=== PATIENT | female | born 1950 | race African-American/Black ===

== ENCOUNTER 2017-02-09 07:04 | Emergency (ER) | payer MEDICARE ==
[2017-02-09 07:14] VITALS: BP 151/80
--- NOTE | 2017-02-09 07:37 | UC ---
Throat Pain/Nasal Braulio HPI - HPI Summary HPI Summary: 66 YEAR OLD FEMALE PRESENTS WITH SORE THROAT. - History of Current Complaint Chief Complaint: UCGeneralIllness Stated Complaint: SORE THROAT Time Seen by Provider: 02/09/17 07:13 - Allergies/Home Medications Allergies/Adverse Reactions: Allergies Allergy/AdvReac Type Severity Reaction Status Date / Time Tramadol [From Ultracet] Allergy Severe Dizziness Verified 02/09/17 07:14 Quinapril [From Accupril] Allergy Unknown Verified 02/09/17 07:14 Reaction Details PMH/Surg Hx/FS Hx/Imm Hx Other History Of: Negative For: Anticoagulant Therapy - Surgical History Surgical History: Yes Surgery Procedure, Year, and Place: LUMPECTOMY. BOWEL RECECTION & POLYP REMOVAL 2009. BL TUBAL LIGATION, LEFT BREAST MASTECTOMY - Family History Known Family History: Positive: Hypertension, Diabetes, Respiratory Disease - Social History Alcohol Use: None Substance Use Type: None Smoking Status (MU): Never Smoked Tobacco - Immunization History Most Recent Influenza Vaccination: 2011 Most Recent Tetanus Shot: UNSURE Most Recent Pneumonia Vaccination: HAD Review of Systems Constitutional: Negative Skin: Negative Eyes: Negative ENT: Sore Throat, Nasal Discharge Respiratory: Negative Cardiovascular: Negative Gastrointestinal: Negative Genitourinary: Negative Motor: Negative Neurovascular: Negative Musculoskeletal: Negative Neurological: Negative Psychological: Negative All Other Systems Reviewed And Are Negative: Yes Physical Exam Triage Information Reviewed: Yes Vital Signs: Initial Vital Signs Temp 36.3 C 02/09/17 07:09 Pulse 75 02/09/17 07:09 Resp 18 02/09/17 07:09 BP 151/80 02/09/17 07:09 Pulse Ox 100 02/09/17 07:09 Eye Exam: Normal ENT: Positive: Pharyngeal erythema, Nasal congestion, Tonsillar swelling Dental Exam: Normal Neck exam: Normal Neck: Positive: 1 Respiratory Exam: Normal Cardiovascular Exam: Normal Abdominal Exam: Normal Musculoskeletal Exam: Normal Neurological Exam: Normal Psychological Exam: Normal Skin Exam: Normal Throat Pain/Nasal Course/Dx - Differential Dx/Diagnosis Provider Diagnoses: PHARYNGITIS. SORE THROAT Discharge - Discharge Plan Condition: Stable Disposition: HOME Prescriptions: Amoxicillin CAP* [Amoxicillin 500 MG CAP*] 500 mg PO TID #30 cap LoraTADine TAB(NF) [Claritin 10 MG TAB(NF)] 10 mg PO DAILY #30 tab Magic M W2 Mark/Maal/Nyst/Lido* 15 ml SWISH SPIT QID #120 ml Patient Education Materials: Pharyngitis (ED) Referrals: Yahir Molina MD [Primary Care Provider] - If Needed
== END 2017-02-09 07:57 | disposition home or self-care (01) ==
LOC: UCEAST 07:04
DX: J02.9 Acute pharyngitis, unspecified (principal); Z88.5 Allergy status to narcotic agent
CPT/HCPCS: 87651; 99212; G0463

== ENCOUNTER 2018-03-10 10:51 | Observation (INO) | payer BC, MEDICARE ==
[2018-03-10] MEDS ORDERED: Aspirin 81 mg CHEW TAB* 81 MG TAB.CHEW PO ONE (11:03)
--- NOTE | 2018-03-10 11:03 | ED ---
HPI Chest Pain - HPI Summary HPI Summary: This is olimpia Guzman documenting for attending Vish Donald MD. This patient is a 67 year old F BIBA to ED with a chief complaint of CP since 1 month ago. The CC is described as intermittent, pressure and tightness with episodes lasting 10-15 minutes. The patient rates the pain 7/10 in severity during the onset of pain but has no pain currently. Symptoms aggravated by exertion. Symptoms alleviated by lying down. Patient reports dizziness. Patient denies N/V. Patient has had a stress test in 2011 which was negative. Patient does not have a crime lab technician. PMHx of DM, HTN, and HLD. Denies PHx of heart attack. Father had heart attack at age 64 and had DM. - History of Current Complaint Time Seen by Provider: 03/10/18 10:55 Hx Obtained From: Patient Onset/Duration: Started Weeks Ago - since 1 month ago, Resolved - currently Timing: Intermittent, Lasting Minutes - 10-15 minutes Initial Severity: Moderate - 7/10 Current Severity: None Pain Intensity: 7 Pain Scale Used: 0-10 Numeric Character: Pressure/Squeezing, Tightness Aggravating Factor(s): Exertion Alleviating Factor(s): Position - lying down Associated Signs and Symptoms: Positive: Other: - Patient reports dizziness. Patient denies N/V. - Allergy/Home Medications Allergies/Adverse Reactions: Allergies Allergy/AdvReac Type Severity Reaction Status Date / Time quinapril Allergy Dizziness Verified 03/10/18 10:56 tramadol [From Ultracet] Allergy See Comment Verified 03/10/18 10:56 Home Medications: Home Medications Glimepiride (NF) 1 mg PO QAM 03/10/18 [History Confirmed 03/10/18] Naproxen TAB* [Naprosyn 250 mg TAB*] 500 mg PO BID WITH MEALS PRN 03/10/18 [ History Confirmed 03/10/18] Olmesartan Medoxomil [Benicar] 20 mg PO DAILY 03/10/18 [History Confirmed ] Pravastatin (NF) [Pravachol (NF)] 20 mg PO DAILY 03/10/18 [History Confirmed ] dilTIAZem HCl [Cartia Xt] 240 mg PO DAILY 03/10/18 [History Confirmed 03/10/18] PMH/Surg Hx/FS Hx/Imm Hx Endocrine/Hematology History: Reports: Hx Diabetes - TYPE 2 Denies: Hx Anticoagulant Therapy Cardiovascular History: Reports: Hx Angina, Hx Hypercholesterolemia, Hx Hypertension - ON CARDIZEM & BENICAR, Other Cardiovascular Problems/Disorders - RBBB 07/23/13 EKG Respiratory History: Reports: Hx Pneumonia Denies: Hx Asthma, Hx Chronic Obstructive Pulmonary Disease (COPD) GI History: Reports: Other GI Disorders - RECTAL POLYP & BOWL RESECTION 2009 Musculoskeletal History: Reports: Hx Bursitis - & TENDINITIS, Other Musculoskeletal History - HX FOOT FX Sensory History: Reports: Hx Contacts or Glasses Opthamlomology History: Reports: Hx Contacts or Glasses Neurological History: Reports: Hx Dementia - oral meds - Cancer History Cancer Type, Location and Year: LEFT BREAST CA Hx Chemotherapy: Yes - Surgical History Surgery Procedure, Year, and Place: LUMPECTOMY. BOWEL RECECTION & POLYP REMOVAL 2009. BL TUBAL LIGATION, LEFT BREAST MASTECTOMY Hx Anesthesia Reactions: No Infectious Disease History: Reports: Hx Shingles Denies: Traveled Outside the [place] in Last 30 Days - Family History Known Family History: Positive: Hypertension, Diabetes, Respiratory Disease Family History: Father had heart attack at age 64 - Social History Alcohol Use: None Substance Use Type: Reports: None Smoking Status (MU): Never Smoked Tobacco Review of Systems Positive: Chest Pain Negative: Vomiting, Nausea Neurological: Other - dizziness All Other Systems Reviewed And Are Negative: Yes Physical Exam - Summary Physical Exam Summary: VITAL SIGNS: Reviewed. GENERAL: Patient is a well-developed and nourished FEMALE who is lying comfortable in the stretcher. Patient is not in any acute respiratory distress. HEAD AND FACE: No signs of trauma. No ecchymosis, hematomas or skull depressions. No sinus tenderness. EYES: PERRLA, EOMI x 2, No injected conjunctiva, no nystagmus. EARS: Hearing grossly intact. Ear canals and tympanic membranes are within normal limits. MOUTH: Oropharynx within normal limits. NECK: Supple, trachea is midline, no adenopathy, no JVD, no carotid bruit, no c- spine tenderness, neck with full ROM. CHEST: Symmetric, no tenderness at palpation LUNGS: Clear to auscultation bilaterally. No wheezing or crackles. CVS: Regular rate and rhythm, S1 and S2 present, no murmurs or gallops appreciated. ABDOMEN: Soft, non-tender. No signs of distention. No rebound no guarding, and no masses palpated. Bowel sounds are normal. EXTREMITIES: FROM in all major joints, no edema, no cyanosis or clubbing. NEURO: Alert and oriented x 3. No acute neurological deficits. Speech is normal and follows commands. SKIN: Dry and warm Triage Information Reviewed: Yes Vital Signs On Initial Exam: Initial Vitals Temp Pulse Resp BP Pulse Ox 97.4 F 60 16 161/72 97 03/10/18 10:53 03/10/18 10:53 03/10/18 10:53 03/10/18 10:53 03/10/18 10:53 Vital Signs Reviewed: Yes Diagnostics - Laboratory Result Diagrams: 03/10/18 11:09 03/10/18 11:09 Lab Statement: Any lab studies that have been ordered have been reviewed, and results considered in the medical decision making process. - Radiology CXR Radiology Interpretation Completed By: Radiologist - NO ACTIVE CARDIOPULMONARY DISEASE. ED physician has reviewed this radiology report. - EKG 1109 Cardiac Rate: Bradycardia - 59 BPM EKG Rhythm: Sinus Bradycardia EKG Interpretation: No ST elevations, Q wave in aVF, V2, and V3 Re-Evaluation - Re-Evaluation First Eval Re-Evaluation Time: 13:22 Comment: Discussed results with the patient and plan for admission. Patient understands and agrees. Chest Pain Course/Dx - Course Assessment/Plan: This patient is a 67 year old F BIBA to ED with a chief complaint of CP since 1 month ago. The CC is described as intermittent, pressure and tightness with episodes lasting 10-15 minutes. The patient rates the pain 7/10 in severity during the onset of pain but has no pain currently. Symptoms aggravated by exertion. Symptoms alleviated by lying down. Patient reports dizziness. Patient denies N/V. Patient has had a stress test in 2011 which was negative. Patient does not have a crime lab technician. PMHx of DM, HTN, and HLD. Denies PHx of heart attack. Father had heart attack at age 64 and had DM. Blood test results without a significant abnormality except for lactic acid is 2.1, magnesium 1.7, AST is 50, alkaline phosphatase is 113. Chest x-ray impression: No acute pathology. EKG shows a normal sinus rhythm with no ST elevation. In the ED course the patient was given an aspirin pain he was given magnesium for the hypomagnesemia. Since the patient has multiple comorbidities for acute coronary syndrome I discussed the case with Dr. Torres from the hospitalist services who accepted the patient for admission. The patient agrees with admission. Patient is hemodynamically stable alert and oriented 3. - Chest Pain Differential Diagnosis/HQI/PQRI: Acute SC, ACS, Angina, CHF, Chest Wall, GI Disease, Lower Respiratory Infection - Diagnoses Provider Diagnoses: Chest pain, rule out acute myocardial infarction - Provider Notifications Discussed Care Of Patient With: Mari Torres Time Discussed With Above Provider: 03:17 Instructed by Provider To: Other - Consulted Dr. Torres at 0317 who accepts the patient for admission. Discharge - Sign-Out/Discharge Documenting (check all that apply): Patient Departure - Discharge Plan Condition: Stable Disposition: ADMITTED TO [facility] Referrals: Yahir Molina MD [Primary Care Provider] -
[2018-03-10] MEDS ORDERED: Magnesium Oxide TAB* 400 MG PO ONE (12:13)
--- NOTE | 2018-03-10 12:31 | RAD ---
HISTORY: CP, chest pain COMPARISONS: July 23, 2013 VIEWS: 1: frontal portable view of the chest at 11:35 AM FINDINGS: LINES AND TUBES: None. CARDIOMEDIASTINAL SILHOUETTE: The aorta is tortuous. The cardiomediastinal silhouette is otherwise normal for portable technique. PLEURA: The costophrenic angles are sharp. No pleural abnormalities are noted. LUNG PARENCHYMA: The lungs are clear. ABDOMEN: The upper abdomen is clear. There is no subphrenic gas. BONES AND SOFT TISSUES: No bone or soft tissue abnormalities are noted. IMPRESSION: NO ACTIVE CARDIOPULMONARY DISEASE.
[2018-03-10 12:37] LABS: ABS Basophils 0 10^3/ul (0-0.2); ABS Eosinophils 0.1 10^3/ul (0-0.6); ABS Lymphocytes 1.9 10^3/ul (1.0-4.8); ABS Monocytes 0.5 10^3/ul (0-0.8); ABS Neutrophils 1.4 10^3/ul (1.5-7.7); ABS Nucleated RBC 0 10^3/ul; Eosinophil % 1.4 % (0-6); Hematocrit 38 % (35-47); Hemoglobin 12.4 g/dl (12.0-16.0); Lymphocyte % 48.6 % (25-47); Mean Corpuscular HGB Conc 32 g/dl (31-36); Mean Corpuscular Hemoglobin 24 pg (27-31); Mean Corpuscular Volume 75 fL (80-97); Mean Platelet Volume 9.1 um3 (7.4-10.4); Nucleated Red Blood Cells % 0.2; Platelet Count 242 10^3/ul (150-450); Red Cell Distribution Width 14 % (10.5-15); White Blood Count 3.8 10^3/ul (3.5-10.8)
[2018-03-10] MEDS ORDERED: Dextrose 50% Syringe 50 ML* 25 GM/50 ML SYRINGE IV PUSH PRN (14:10)
[2018-03-10] MEDS ORDERED: Magnesium Sulfate 1 GM IV* 1 GM/100 ML BAG IV ONE (14:13)
[2018-03-10] MEDS ORDERED: NS 0.9% 1000 ML* 1,000 ML IV SCH (14:15)
--- NOTE | 2018-03-10 16:26 | HP ---
CC: Dr. Ruelas * HISTORY AND PHYSICAL: DATE OF ADMISSION: 03/10/18 PROVIDER: Carri Navarro NP ATTENDING PHYSICIAN: Dr. Torres * (report dictated by Carri Navarro NP). PRIMARY CARE PROVIDER: Dr. Ruelas. CHIEF COMPLAINT: Chest pain. HISTORY OF PRESENT ILLNESS: Ms. Delgado is a 67-year-old female with a past medical history of eqb-ysfvnrf-qerulsxti type 2 diabetes; hypertension; hyperlipidemia; history of breast cancer, status post lumpectomy, radiation and chemo, who presents to the emergency department today with complaint of intermittent chest pain with exertion on and off x1 month. The patient reports starting approximately a month ago, she noted she had mid sternal chest pain that did not radiate, with exertion only. She reports these episodes have been intermittent several times a week only during exertion. She reports that they last 10 to 15 minutes and she has to rest and they subside. She denies any radiation. No accompanied diaphoresis or shortness of breath. She underwent a cardiac nuclear stress test in 2012, which placed her at low risk. She has no history of coronary artery disease. She denies any recent upper respiratory illness, cough, fever, chills, abdominal pain, or symptoms of reflux. Currently, she reports that she did experience some mid sternal chest pain this morning. She went and followed up at her primary care's office, who sent her to the emergency department for further evaluation. At her primary care provider's office, she had an EKG as well as EKG was performed in the emergency department, which showed no acute changes. Her initial troponin is 0.00. She is noted to have an elevated lactic acid of 2.1. PAST MEDICAL HISTORY: 1. Ukr-otnwmrx-iucihsygj type 2 diabetes. 2. Hypertension. 3. Hyperlipidemia. 4. Fatty liver. 5. History of cardiomyopathy. 6. Microcytic anemia. 7. History of breast cancer, in 2006, status post lumpectomy, radiation and chemo. 8. History of breast reduction. 9. Bowel resection in 2013 for benign polyp. MEDICATIONS: Home medications: 1. Metformin 1000 mg p.o. b.i.d. 2. Advil/ibuprofen 400 mg p.o. q.6 hours p.r.n. (per the patient, she rarely takes this). 3. Pravastatin 20 mg p.o. daily. 4. Benicar 20 mg p.o. daily. 5. Naproxen 500 mg p.o. b.i.d. with meals p.r.n. (per the patient, she rarely takes this). 6. Diltiazem 240 mg p.o. daily. 7. Glimepiride 1 mg p.o. q.a.m. ALLERGIES: QUINAPRIL and TRAMADOL. FAMILY HISTORY: The patient reports that her mother had lung cancer and had hypertension. Her father at age 69 from an [place], as well as he had type 1 diabetes. She had a brother, who of alcoholic cirrhosis and a sister, who at age 52; she reports complications from hypertension. SOCIAL HISTORY: The patient denies history of tobacco abuse. Denies alcohol or recreational drug use. She currently lives in an apartment attached to her son' s house. She lists her daughter, Marii Dawn, as the healthcare proxy. Her number is [phone]. 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 REVIEW OF SYSTEMS: A 14-point review of systems was performed. All the pertinent positives and negatives are mentioned in the history of present illness. Otherwise, negative. PHYSICAL EXAMINATION GENERAL APPEARANCE: A well-developed, 67-year-old female, alert and oriented x3 , sitting up in the emergency department stretcher, in no acute distress. VITAL SIGNS: Temperature 97.4, heart rate 63, respirations 18, O2 sat 98% on room air, blood pressure 147/62. NECK: Supple. LUNGS: Clear to auscultation bilaterally. Good aeration throughout. CARDIAC: S1, S2. Regular rate and rhythm. No murmur, rub, or gallop appreciated. No reproducible chest pain. ABDOMEN: Obese, soft, nontender, nondistended. Normal bowel sounds throughout. No epigastric tenderness noted. EXTREMITIES: No clubbing, cyanosis, or edema noted. 2+ DP pulses bilaterally. Strength is 5/5 throughout. NEURO: Alert and oriented x3. No focal deficits. Cranial nerves II through XII are grossly intact. PSYCH: Appropriate. SKIN: Warm, dry, intact. No rashes, lesions, wounds noted. DIAGNOSTIC STUDIES/LAB DATA: Sodium 139, potassium 4.1, chloride 104, carbon dioxide 27, anion gap 8, BUN 11, creatinine 0.63, glucose 103, lactic acid 2.1, calcium 9.6, magnesium 1.7. Total bilirubin 0.70, AST 50, ALT 31, alkaline phosphatase 113. Total creatine kinase 189, CK-MB 1.9. Troponin 0.00. BNP 31. Total protein 7.7, albumin 4.0. TSH 2.21. WBC is 3.8, RBC 5.10, Hgb is 12.4, Hct 38, MCV 75, MCH 24, MCHC 32, RDW 14, platelet count 242. Chest x-ray, impression: No active cardiopulmonary disease. EKG: Sinus bradycardia with a rate of 59. In comparison to prior EKG from 2013 , there are no acute ST changes noted. ASSESSMENT AND PLAN: Ms. Delgado is a 67-year-old female with a past medical history of obesity, xeh-dowddyo-cztkptiwu type 2 diabetes, hypertension, hyperlipidemia, fatty liver, history of cardiomyopathy, microcytic anemia, history of breast cancer, who presented to the emergency department today with report of chest pain with exertion x1 month. 1. Chest pain. The patient will be admitted on observation to telemetry for monitoring for acute coronary syndrome. It is possible this is angina. Currently, the patient is chest pain-free. Her initial troponin is 0.00. We will continue to trend troponins q.3 hours and we will obtain EKG with any further chest pain. She received a full-strength aspirin in the emergency department. Plan for n.p.o. after midnight with cardiac nuclear exercise stress test in the morning. The patient's ALEXIS score is 3. 2. Elevated lactic acid. The patient's lactic acid is mildly elevated at 2.1. We will give the patient 1 L of normal saline and recheck her lactate this evening. She is on metformin. This should be considered to be held on discharge as most likely this is causing her elevation in lactic acid. 3. Hypomagnesemia. The patient's magnesium is 1.7. We will give the patient replacement. Recheck in the morning. 4. Transaminitis. The patient's AST is mildly elevated at 50 with a normal ALT. Most likely, this is secondary to her fatty liver. The patient is followed by her PCP. 5. Elevated alk phos, unclear etiology. We will recheck in the morning. Her previous alk phos has been normal. 6. Microcytic anemia. H and H are stable and at baseline. 7. Hypertension, stable. We will continue home medication of diltiazem and continue to monitor. 8. Lmg-yinpsma-sezhqgvqf type 2 diabetes. Plan to hold metformin and glimepiride oral home medications and start fingerstick blood glucose a.c. and h.s. with lispro sliding scale. 9. DVT prophylaxis. Heparin subcu. 10. Code status. Full code. 11. Hospital status. Observation. TIME SPENT: Approximately 60 minutes was spent on this admission. CARRI NAVARRO, GUEST HISTORY CLERK [id number]/CPS #: [id number] ENEIDA
[2018-03-10] MEDS: Insulin LISPRO* 1 UNITS UNIT SUBCUT SCH ×2 (16:54→21:52)
[2018-03-10] MEDS: Heparin VIAL(*) 5000 UNITS/ML VIAL (FIVE THOUSAND) SUBCUT SCH (21:52)
[2018-03-11 05:25] LABS: Hematocrit 38 % (35-47); Hemoglobin 12.4 g/dl (12.0-16.0); Mean Corpuscular HGB Conc 32 g/dl (31-36); Mean Corpuscular Hemoglobin 24 pg (27-31); Mean Corpuscular Volume 73 fL (80-97); Mean Platelet Volume 8.7 um3 (7.4-10.4); Platelet Count 222 10^3/ul (150-450); Red Blood Count 5.23 10^6/ul (4.00-5.40); Red Cell Distribution Width 14 % (10.5-15); White Blood Count 3.6 10^3/ul (3.5-10.8)
[2018-03-11 05:38] LABS: EGFR Non-African American 107.7 (>60)
[2018-03-11 05:47] LABS: ABS Basophils 0.1 10^3/ul (0-0.2); ABS Eosinophils 0.1 10^3/ul (0-0.6); ABS Lymphocytes 1.8 10^3/ul (1.0-4.8); ABS Monocytes 0.6 10^3/ul (0-0.8); ABS Neutrophils 1.1 10^3/ul (1.5-7.7); ABS Nucleated RBC 0 10^3/ul; Eosinophil % 2.2 % (0-6); Lymphocyte % 49.7 % (25-47); Nucleated Red Blood Cells % 0.1
[2018-03-11] MEDS: Heparin VIAL(*) 5000 UNITS/ML VIAL (FIVE THOUSAND) SUBCUT SCH ×2 (06:08→15:35)
[2018-03-11] MEDS ORDERED: Magnesium Sulfate 2 GM IV* 2 GM/50 ML BAG IVPB ONE (08:30)
[2018-03-11] MEDS ORDERED: Diltiazem CD CAP* 240 MG PO SCH (09:00)
[2018-03-11] MEDS: Insulin LISPRO* 1 UNITS UNIT SUBCUT SCH ×2 (09:28→11:55)
--- NOTE | 2018-03-11 12:08 | RAD ---
HISTORY: chest pain with exertion COMPARISONS: July 24, 2013 TECHNIQUE: A 1 day stress/rest myocardial perfusion study was performed, with exercise stress. The exercise portion was performed using the Santos protocol, for a total METs of 7. The stress portion was monitored by Dr. Adams. Gated SPECT imaging was performed, with CT-based attenuation correction DOSE: Stress: Technetium 99m tetrofosmin, 25.8 millicuries, injected at 11:00 AM on March 11, 2018 Rest: Technetium 99m tetrofosmin, 10.88 millicuries, injected at 6:30 AM on March 11, 2018 Pharmacologic agent: None FINDINGS: CARDIAC MONITORING: Peak heart rate of 1 52 bpm, 99% of predicted EF: 56% TID: 1 MOTION: Normal motion, with normal wall thickening. PERFUSION: There is a small reversible defect near the apex that is only seen on the attenuation corrected images. OTHER: None IMPRESSION: QUESTIONABLE SMALL REVERSIBLE PERFUSION DEFECT OF THE APEX. ASSESSMENT: LOW RISK. Based on imaging criteria from ACC/AHA 2002. Guideline Update for the Management of Patient's with Chronic Stable Angina, table 23. Noninvasive Risk Stratification.
--- NOTE | 2018-03-11 15:47 | PN ---
Subjective Date of Service: 03/11/18 Interval History: patient reports she has not had any CP since arrival to ER. She offers no complaints and would like to go home Objective Active Medications: Dextrose (D50w Syringe 50 Ml*) 12.5 gm IV PUSH .FOR FS < 60 - SS PRN PRN Reason: FS < 60 Diltiazem HCl (Cardizem Cd Cap*) 240 mg PO DAILY [facility] Last Admin: 03/11/18 09:35 Dose: 240 mg Heparin Sodium (Porcine) (Heparin Vial(*)) 5,000 units SUBCUT Q8HR MATTHEW Last Admin: 03/11/18 15:35 Dose: Not Given Insulin Human Lispro (Humalog*) 0 units SUBCUT ACHS [facility]; Protocol Last Admin: 03/11/18 11:55 Dose: Not Given Valsartan (Diovan Tab*) 160 mg PO DAILY [facility] Oxygen Devices in Use Now: None Appearance: 67 yo female sitting up in bed visiting with family in NAD. A+O x3 Eyes: No Scleral Icterus, PERRLA Ears/Nose/Mouth/Throat: NL Teeth, Lips, Gums, Mucous Membranes Moist Neck: NL Appearance and Movements; NL JVP Respiratory: Symmetrical Chest Expansion and Respiratory Effort, Clear to Auscultation Cardiovascular: NL Sounds; No Murmurs; No JVD, RRR, No Edema Abdominal: NL Sounds; No Tenderness; No Distention Extremities: No Edema, No Clubbing, Cyanosis Skin: No Rash or Ulcers, No Nodules or Sclerosis Neurological: Alert and Oriented x 3, NL Sensation, NL Muscle Strength and Tone Lines/Tubes/Other Access: Clean, Dry and Intact Peripheral IV Nutrition: Taking PO's Result Diagrams: 03/11/18 04:58 03/11/18 04:58 Assess/Plan/Problems-Billing Assessment: 67 yo female with PMH of obesity, DMII, HTN who presented yesterday with C/O CP x 1 month worse with exertion - Patient Problems (1) Chest pain Comment: Resolved. Nuclear stress showing low risk - cardiology looked at the imaging and said it is a normal barbara, exercise stress test placed at Intramediate risk d/ u exercise capacity was poor and blood pressure elevated to 220 with exercise - clinical nutrition manager suspects CP is secondary to uncontrolled HTN. No CP during exam. - Plan to add HCTZ on DC. Cardiology recommended outpt echo which patient will go through her [facility] PCP. As well, recommended a BB but pts HR is low 60s. (2) HTN (hypertension) Comment: - patient thought to have uncontrolled HTN - plan to initiate HCTZ on discharge , recommended starting blood pressure monitoring at home with keeping a log for PCP. (3) Diabetes 1.5, managed as type 2 Comment: sugars controlled. Continue home emdications on discharge (4) DVT prophylaxis Comment: HSQ Status and Disposition: OBV. Plan for DC to home today. Family in room and agree with the POC.
[2018-03-11] MEDS ORDERED: Hydrochlorothiazide TAB* 25 MG PO ONE (15:51)
[2018-03-11 15:55] VITALS: BP 144/74
[2018-03-12] MEDS ORDERED: Valsartan TAB* 160 MG PO SCH (09:00)
--- NOTE | 2018-03-13 23:43 | DS ---
CC: Dr. Ruelas.* DISCHARGE SUMMARY: DATE OF ADMISSION: 03/10/18 DATE OF DISCHARGE: 03/11/18 HOSPITAL STATUS: Observation. PROVIDER: Carri Navarro NP ATTENDING PHYSICIAN: Dr. Torres * (report dictated by Carri Navarro NP). PRIMARY CARE PROVIDER: Dr. Ruelas. PRIMARY DIAGNOSES: Chest pain, unclear etiology, thought to be possibly secondary to anxiety and potentially uncontrolled hypertension with exercise and exertion. SECONDARY DIAGNOSES: 1. Non-insulin dependent type 2 diabetes. 2. Hypertension. 3. Hyperlipidemia. 4. Fatty liver. 5. History of cardiomyopathy. 6. History of microcytic anemia. 7. History of breast cancer in 2017, status post lumpectomy, radiation and chemo. 8. History of breast reduction. 9. Bowel resection in 2013 for benign polyp. HISTORY OF PRESENT ILLNESS AND HOSPITAL COURSE: Ms. Delgado is a very pleasant 67-year-old female with a past medical history as stated above who presented to the emergency department with complaints of intermittent chest pain with exertion on and off for 1 month. The patient reports that she has had these episodes intermittently several times a week during exertion and denies these episodes at rest. She has no accompanying diaphoresis or shortness of breath. She also reports some anxiety at her baseline and is not sure if she has felt a correlation between anxiety and the chest discomfort. She reports it to be midsternal with no radiation. She was seen and evaluated in her primary care's office and was sent to the emergency room for further evaluation. In the emergency department, she was found to have normal EKG and a flat troponin. She was admitted to the hospitalist service and underwent a nuclear exercise cardiac stress test, which placed her at low risk. The impression shows a questionable small reversible perfusion defect at the apex, I did discuss this with the finance admin who reports that this is actually a fixed defect. Hair Spinning Machine Operator who performed the exercise portion of the stress test reported her to be intermediate risk and this was due to that when she got to exercise capacity, her blood pressure was approximately 220. It was thought possibly and most likely that this exertional chest pain is secondary to uncontrolled hypertension. Our recommendation was start the patient on a beta tiffany and a diuretic; however, due to the patient's heart rate being in the 50s and 60s at her baseline, a beta-tiffany would not be a good choice for the patient and she was then started on hydrochlorothiazide. I suggested that the patient buy a blood pressure cuff and monitor her blood pressures a couple of times a day at home and enter the log for her primary care provider. As well, if she develops chest discomfort, to take her blood pressure to see if she is actually hypertensive with these symptoms. The patient is to follow up with her primary care provider within 4 to 7 days. If she has other concerning worsening symptoms, I instructed the patient to return emergency department for further evaluation. She was noted to have a magnesium of 1.8 and she got replacement. Otherwise, her labs are unremarkable. Hemoglobin A1c was performed, which was noted to be 7.1. Today, on the day of discharge the patient has not had any further episodes of chest pain and did not have any chest pain during her exercise stress test. She reports that she feels is at her baseline and would like to go home. She has been ambulating around the unit and is stable. She has remained hemodynamically stable throughout hospitalization. Her family has been at the bedside and agrees to plan of care. I discussed with the patient the benefits of weight loss and a healthy diabetic diet and possible referral to a registered massage therapist and could follow up with the [facility] if she wished to. DISCHARGE MEDICATIONS: 1. Metformin 1000 mg p.o. b.i.d. 2. Advil 400 mg p.o. q.6 hours p.r.n. (per the patient, she does not take this often). 3. Pravastatin 20 mg p.o. daily. 4. Olmesartan 20 mg p.o. daily. 5. Naproxen 500 mg p.o. b.i.d. with meals p.r.n. (per the patient, she does not take this often). 6. Diltiazem 240 mg p.o. daily. 7. Glimepiride 1 mg p.o. q.a.m. 8. Hydrochlorothiazide 25 mg p.o. daily (new medication). DISCHARGE PLAN: 1. The patient is stable for discharge to home. 2. She is to follow up with her primary care provider within 4 to 7 days. Return to the emergency department with any further worsening symptoms. I discussed with the patient to keep a blood pressure record to show to her primary care provider. TIME SPENT: Approximately 60 minutes were spent on this discharge. CARRI NAVARRO, RN INTERNATIONAL [id number]/[facility] #: [id number] [facility] HOSPITALAlanis
== END 2018-03-11 17:01 | disposition home or self-care (01) ==
LOC: ED 10:51 → MEDTELE 14:06
PROVIDERS: ADMIT Hospitalist; ATTEND Hospitalist
DX: R07.9 Chest pain, unspecified (principal); E11.9 Type 2 diabetes mellitus without complications; I10 Essential (primary) hypertension; E78.5 Hyperlipidemia, unspecified; Z79.899 Other long term (current) drug therapy
CPT/HCPCS: 36415; 71045; 78452; 80048; 80053; 82550; 82553; 82728; 82746; 83036; 83540; 83550; 83605; 83735; 83880; 84075; 84443; 84484; 85025; 93005; 93017; 99284; A9270-GY; A9502; G0378; J1644; J3475

== ENCOUNTER → 2018-05-28 11:12 | Emergency (ER) | payer MEDICARE, OTHER ==
--- NOTE | 2018-05-28 13:29 | RAD ---
HISTORY: chest pain COMPARISONS: February VIEWS: 1: frontal AP view of the chest at 1:18 PM FINDINGS: LINES AND TUBES: None. CARDIOMEDIASTINAL SILHOUETTE: The aorta is tortuous. The cardiomediastinal silhouette is otherwise normal for portable technique. PLEURA: The costophrenic angles are sharp. No pleural abnormalities are noted. LUNG PARENCHYMA: The lungs are clear. ABDOMEN: The upper abdomen is clear. There is no subphrenic gas. BONES AND SOFT TISSUES: No bone or soft tissue abnormalities are noted. IMPRESSION: NO ACTIVE CARDIOPULMONARY DISEASE.
--- NOTE | 2018-05-28 13:44 | ED ---
HPI Chest Pain - HPI Summary HPI Summary: This patient is a 67 year old F presenting to [facility] with a chief complaint of intermittent, slowly worsening, tight, pressure central CP for the past 2-3 months, with episodes lasting for around 15 minutes. Pt endorses fatigue, and denies current pain. She notes a recent EKG was normal, and that she has a scheduled cardiac catheterization in a week or so. She says that the sx are worse with exertion, but still exist at rest. Today, her sx were aggravated by water aerobics (3x a week for 5-6 years), with more difficulty competing the work-out recently. She denies smoking, and endorses PMHx HTN, DM, FHx HTN CAD, DM. 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 Cruz at [place]. - History of Current Complaint Chief Complaint: EDChestPainROMI Time Seen by Provider: 05/28/18 12:53 Hx Obtained From: Patient Onset/Duration: Started Weeks Ago, Still Present Timing: Intermittent, Lasting Minutes - 15 Initial Severity: Moderate - 8/10 at worst Current Severity: None Pain Intensity: 0 Pain Scale Used: 0-10 Numeric Chest Pain Location: Mid Sternal Chest Pain Radiates: No Character: Exertion, Pressure/Squeezing, Tightness Aggravating Factor(s): Exertion Alleviating Factor(s): Nothing Associated Signs and Symptoms: Positive: Chest Pain, Other: - fatigue. Negative : Fever, Diaphoresis, Nausea - Additional Pertinent History Primary Care Physician: [id number] - Allergy/Home Medications Allergies/Adverse Reactions: Allergies Allergy/AdvReac Type Severity Reaction Status Date / Time quinapril Allergy Dizziness Verified 03/10/18 10:56 tramadol [From Ultracet] Allergy See Comment Verified 03/10/18 10:56 PMH/Surg Hx/FS Hx/Imm Hx Endocrine/Hematology History: Reports: Hx Diabetes - TYPE 2 Denies: Hx Anticoagulant Therapy Cardiovascular History: Reports: Hx Angina, Hx Hypercholesterolemia, Hx Hypertension - ON CARDIZEM & BENICAR, Other Cardiovascular Problems/Disorders - RBBB 07/23/13 EKG Respiratory History: Reports: Hx Pneumonia Denies: Hx Asthma, Hx Chronic Obstructive Pulmonary Disease (COPD) GI History: Reports: Other GI Disorders - RECTAL POLYP & BOWL RESECTION 2009 Musculoskeletal History: Reports: Hx Bursitis - & TENDINITIS, Other Musculoskeletal History - HX FOOT FX Sensory History: Reports: Hx Contacts or Glasses Denies: Hx Hearing Aid Opthamlomology History: Reports: Hx Contacts or Glasses Neurological History: Denies: Hx Dementia Psychiatric History: Denies: Hx Schizophrenia - Cancer History Cancer Type, Location and Year: LEFT BREAST CA Hx Chemotherapy: Yes - Surgical History Surgery Procedure, Year, and Place: LUMPECTOMY. BOWEL RECECTION & POLYP REMOVAL 2010. BL TUBAL LIGATION, LEFT BREAST MASTECTOMY Hx Anesthesia Reactions: No - Immunization History Immunizations Up to Date: Yes Infectious Disease History: No Infectious Disease History: Reports: Hx Shingles Denies: Traveled Outside the [place] in Last 30 Days - Family History Known Family History: Positive: Cardiac Disease, Hypertension, Diabetes, Respiratory Disease Family History: Father had heart attack at age 64 - Social History Occupation: Retired Alcohol Use: None Substance Use Type: Reports: None Smoking Status (MU): Never Smoked Tobacco Review of Systems Positive: Fatigue. Negative: Fever Positive: Chest Pain Negative: Nausea Positive: no symptoms reported All Other Systems Reviewed And Are Negative: Yes Physical Exam - Summary Physical Exam Summary: Appearance: Well-appearing, Well-nourished, lying in bed comfortably Skin: Warm, dry, no obvious rash Eyes: sclera anicteric, no conjunctival pallor ENT: mucous membranes moist, pharynx appears normal Neck: Supple, nontender Respiratory: Clear to auscultation, no signs of respiratory distress Cardiovascular: Normal S1, S2. No murmurs. Normal distal pulses in tibial and radial bilaterally. Abdomen: Soft, nontender, normal active bowel sounds present Musculoskeletal: Normal, Strength/ROM Intact Neurological: A&Ox3, awake and alert, mentation is normal, speech is fluent and appropriate Psychiatric: affect is normal, does not appear anxious or depressed Triage Information Reviewed: Yes Vital Signs On Initial Exam: Initial Vitals Temp Pulse Resp BP Pulse Ox 96.5 F 67 16 145/77 97 05/28/18 11:17 05/28/18 11:17 05/28/18 11:17 05/28/18 11:17 05/28/18 11:17 Vital Signs Reviewed: Yes Diagnostics - Vital Signs Vital Signs Temp Pulse Resp BP Pulse Ox 05/28/18 13:09 65 18 174/88 99 05/28/18 11:17 96.5 F 67 16 145/77 97 - Laboratory Result Diagrams: 05/28/18 13:25 05/28/18 13:25 Lab Statement: Any lab studies that have been ordered have been reviewed, and results considered in the medical decision making process. - Radiology CXR Xray Interpretation: No Acute Changes Radiology Interpretation Completed By: Radiologist - No active cardiopulmonary disease. Dr. Christensen has reviewed this report. - EKG 1120 Cardiac Rate: NL - 74 EKG Rhythm: Sinus Rhythm ST Segment: Normal Ectopy: None EKG Interpretation: No STEMI. Nl EKG. Chest Pain Course/Dx - Course Course Of Treatment: A 67-year-old F presents to the ED with a CC of tight, pressure CP for 2 months. (+) fatigue. (-) Nausea, current pain, diaphoresis. PMHx angina, HTN, DM. Sx worse with exertion but still present at rest. A CXR was (-). An EKG reveals NSR at 74 BPM with no STEMI. In the ED course, pt was given . - Diagnoses Provider Diagnoses: Chest pain - Provider Notifications Discussed Care Of Patient With: Maurisio Cruz Time Discussed With Above Provider: 15:42 Instructed by Provider To: Other - Recommends outpatient follow up. Discharge - Sign-Out/Discharge Documenting (check all that apply): Patient Departure - discharge - Discharge Plan Referrals: Kimmy Ham MD [Primary Care Provider] - - Attestation Statements Document Initiated by Scribe: Yes Documenting Scribe: Raleigh Navarro Provider For Whom Jesse is Documenting (Include Credential): Dr. Tristin Christensen MD Scribe Attestation: Raleigh De Jesus scribed for Dr. Tristin Christensen MD on 05/28/18 at 1556.
[2018-05-28 13:53] LABS: ABS Basophils 0 10^3/ul (0-0.2); ABS Eosinophils 0.1 10^3/ul (0-0.6); ABS Lymphocytes 1.8 10^3/ul (1.0-4.8); ABS Monocytes 0.5 10^3/ul (0-0.8); ABS Neutrophils 1.9 10^3/ul (1.5-7.7); ABS Nucleated RBC 0 10^3/ul; Eosinophil % 2.5 % (0-6); Hematocrit 38 % (35-47); Hemoglobin 11.9 g/dl (12.0-16.0); Lymphocyte % 40.6 % (25-47); Mean Corpuscular HGB Conc 32 g/dl (31-36); Mean Corpuscular Hemoglobin 24 pg (27-31); Mean Corpuscular Volume 74 fL (80-97); Mean Platelet Volume 8.6 um3 (7.4-10.4); Nucleated Red Blood Cells % 0.1; Platelet Count 217 10^3/ul (150-450); Red Blood Count 5.07 10^6/ul (4.00-5.40); Red Cell Distribution Width 15 % (10.5-15); White Blood Count 4.4 10^3/ul (3.5-10.8)
[2018-05-28 13:59] LABS: EGFR Non-African American 83.2 (>60)
[2018-05-28 16:11] VITALS: BP 119/58
== END | disposition home or self-care (01) ==
LOC: ED 11:12
DX: R07.9 Chest pain, unspecified (principal); E11.9 Type 2 diabetes mellitus without complications; I10 Essential (primary) hypertension; E78.00 Pure hypercholesterolemia, unspecified; I45.10 Unspecified right bundle-branch block
CPT/HCPCS: 36415; 71045; 80053; 84484; 85025; 93005; 99283

== ENCOUNTER 2018-06-16 05:34 | Emergency (ER) | payer MEDICARE, OTHER ==
[2018-06-16] MEDS ORDERED: Meclizine TAB* 12.5 MG PO ONE ×2 (05:57→09:37)
[2018-06-16 06:28] LABS: ABS Basophils 0 10^3/ul (0-0.2); ABS Eosinophils 0.1 10^3/ul (0-0.6); ABS Lymphocytes 1.3 10^3/ul (1.0-4.8); ABS Monocytes 0.6 10^3/ul (0-0.8); ABS Neutrophils 1.7 10^3/ul (1.5-7.7); ABS Nucleated RBC 0 10^3/ul; Eosinophil % 3.1 % (0-6); Hematocrit 35 % (35-47); Hemoglobin 11.5 g/dl (12.0-16.0); Lymphocyte % 33.9 % (25-47); Mean Corpuscular HGB Conc 33 g/dl (31-36); Mean Corpuscular Hemoglobin 24 pg (27-31); Mean Corpuscular Volume 73 fL (80-97); Mean Platelet Volume 8.3 fL (7.4-10.4); Nucleated Red Blood Cells % 0.1; Platelet Count 184 10^3/ul (150-450); Red Blood Count 4.82 10^6/ul (4.00-5.40); Red Cell Distribution Width 15 % (10.5-15); White Blood Count 3.7 10^3/ul (3.5-10.8)
[2018-06-16 06:35] LABS: INR 1.13 (0.77-1.02)
[2018-06-16] MEDS ORDERED: LORazepam TAB(*) 1 MG PO ONE (07:48)
--- NOTE | 2018-06-16 07:48 | ED ---
Dizziness - HPI Summary HPI Summary: patient is a 67-year-old female with a history of hypertension, diabetes, hypercholesterolemia presenting to the ED with acute onset of dizziness this morning. She endorses a feeling of the room spinning upon wakening this morning. She states she checked her sugars and was proximally 190. She states she has never had this before. She denies any chest pain or shortness of breath. She denies any diaphoresis or headaches. She's been taking her medications as prescribed. She is eating and drinking well. She denies any abdominal pain, vomiting, diarrhea or constipation. She does admit to nausea. Denies any urinary symptoms. She has never been diagnosed with vertigo or BPPV. Symptoms are aggravated with standing upright or sitting upright, alleviated only somewhat with lying flat and resting. Family history is significant for father had [place] and mother diabetes. She denies any lightheadedness, but endorses the room spinning. She does admit to nausea, but denies vomiting. - History Of Current Complaint Chief Complaint: EDDizziness Stated Complaint: DIZZY, NAUSEA Time Seen by Provider: 06/16/18 05:49 Hx Obtained From: Patient Timing: Constant Severity Initially: Severe Severity Currently: Severe Character: Room Spinning Alleviating Factor(s): Nothing Associated Signs And Symptoms: Positive: Nausea - Risk Factors Cardiac Risk Factors: Negative CVA Risk Factor: Negative - Allergies/Home Medications Allergies/Adverse Reactions: Allergies Allergy/AdvReac Type Severity Reaction Status Date / Time quinapril Allergy Dizziness Verified 06/16/18 05:38 tramadol [From Ultracet] Allergy See Comment Verified 06/16/18 05:38 Home Medications: Home Medications Aspirin 81 mg CHEW TAB* [Aspirin Low Dose TAB*] 81 mg PO DAILY 06/16/18 [ History Confirmed 06/16/18] Glimepiride [Amaryl] 1 mg PO DAILY 06/16/18 [History Confirmed 06/16/18] Magnesium Oxide [Mag-Oxide] 400 mg PO DAILY 06/16/18 [History Confirmed 06/16/18 ] Nitroglycerin 0.4 mg SL TID 06/16/18 [History Confirmed 06/16/18] Olmesartan Medoxomil 20 mg PO DAILY 06/16/18 [History Confirmed 06/16/18] Rosuvastatin Calcium 20 mg PO DAILY 06/16/18 [History Confirmed 06/16/18] PMH/Surg Hx/FS Hx/Imm Hx Previously Healthy: Yes Endocrine/Hematology History: Reports: Hx Diabetes - TYPE 2 Denies: Hx Anticoagulant Therapy Cardiovascular History: Reports: Hx Angina, Hx Hypercholesterolemia, Hx Hypertension - ON CARDIZEM & BENICAR, Other Cardiovascular Problems/Disorders - RBBB 07/23/13 EKG Respiratory History: Reports: Hx Pneumonia Denies: Hx Asthma, Hx Chronic Obstructive Pulmonary Disease (COPD) GI History: Reports: Other GI Disorders - RECTAL POLYP & BOWL RESECTION 2009 Musculoskeletal History: Reports: Hx Bursitis - & TENDINITIS, Other Musculoskeletal History - HX FOOT FX Sensory History: Reports: Hx Contacts or Glasses Denies: Hx Hearing Aid Opthamlomology History: Reports: Hx Contacts or Glasses Neurological History: Denies: Hx Dementia Psychiatric History: Denies: Hx Schizophrenia - Cancer History Cancer Type, Location and Year: LEFT BREAST CA Hx Chemotherapy: Yes - Surgical History Surgery Procedure, Year, and Place: LUMPECTOMY. BOWEL RECECTION & POLYP REMOVAL 2009. BL TUBAL LIGATION, LEFT BREAST MASTECTOMY Hx Anesthesia Reactions: No Infectious Disease History: No Infectious Disease History: Reports: Hx Shingles Denies: Traveled Outside the [place] in Last 30 Days - Family History Known Family History: Positive: Cardiac Disease, Hypertension, Diabetes, Respiratory Disease Family History: Father had heart attack at age 64 - Social History Occupation: Employed Full-time Lives: With Family Alcohol Use: None Hx Substance Use: No Substance Use Type: Reports: None Hx Tobacco Use: No Smoking Status (MU): Never Smoked Tobacco Review of Systems Constitutional: Negative Negative: Fever, Chills, Fatigue, Skin Diaphoresis Negative: Dental Pain, Sore Throat Negative: Palpitations, Chest Pain Positive: Nausea Genitourinary: Negative Positive: no symptoms reported, see HPI Negative: Arthralgia, Myalgia Neurological: Other - dizziness (Room spinning) Psychological: Normal All Other Systems Reviewed And Are Negative: Yes Physical Exam Triage Information Reviewed: Yes Vital Signs On Initial Exam: Initial Vitals Temp Pulse Resp BP Pulse Ox 97.6 F 58 16 158/88 96 06/16/18 05:35 06/16/18 05:35 06/16/18 05:35 06/16/18 05:35 06/16/18 05:35 Vital Signs Reviewed: Yes Appearance: Positive: Well-Appearing, Well-Nourished Skin: Positive: Skin Color Reflects Adequate Perfusion Head/Face: Positive: Normal Head/Face Inspection Eyes: Positive: EOMI, ILENE, Conjunctiva Clear Neck: Positive: Supple, No Lymphadenopathy Respiratory/Lung Sounds: Positive: Clear to Auscultation, Breath Sounds Present Cardiovascular: Positive: RRR, Pulses are Symmetrical in both Upper and Lower Extremities Musculoskeletal: Positive: Strength/ROM Intact Neurological: Positive: Sensory/Motor Intact, Alert, Oriented to Person Place, Time, CN Intact II-III, Normal Gait, Speech Normal Psychiatric: Positive: Normal, Affect/Mood Appropriate AVPU Assessment: Alert Diagnostics - Vital Signs Vital Signs Temp Pulse Resp BP Pulse Ox 06/16/18 07:31 56 25 171/81 95 06/16/18 07:01 56 18 154/92 97 06/16/18 07:00 56 27 97 06/16/18 06:01 56 13 147/73 96 06/16/18 06:00 52 23 98 06/16/18 05:53 55 23 96 06/16/18 05:35 97.6 F 58 16 158/88 96 - Laboratory Lab Results: Lab Results 06/16/18 06/16/18 06/16/18 Range/Units 06:19 06:19 06:19 WBC 3.7 (3.5-10.8) 10^3/ul RBC 4.82 (4.00-5.40) 10^6/ul Hgb 11.5 L (12.0-16.0) g/dl Hct 35 (35-47) % MCV 73 L (80-97) fL MCH 24 L (27-31) pg MCHC 33 (31-36) g/dl RDW 15 (10.5-15) % Plt Count 184 (150-450) 10^3/ul MPV 8.3 (7.4-10.4) fL Neut % (Auto) 46.2 (38-83) % Lymph % (Auto) 33.9 (25-47) % Gila % (Auto) 15.5 H (0-7) % Eos % (Auto) 3.1 (0-6) % Baso % (Auto) 1.3 (0-2) % Absolute Neuts (auto) 1.7 (1.5-7.7) 10^3/ul Absolute Lymphs (auto) 1.3 (1.0-4.8) 10^3/ul Absolute Monos (auto) 0.6 (0-0.8) 10^3/ul Absolute Eos (auto) 0.1 (0-0.6) 10^3/ul Absolute Basos (auto) 0 (0-0.2) 10^3/ul Absolute Nucleated RBC 0 10^3/ul Nucleated RBC % 0.1 INR (Anticoag Therapy) 1.13 H (0.77-1.02) Sodium 137 (135-145) mmol/L Potassium 3.4 L (3.5-5.0) mmol/L Chloride 104 (101-111) mmol/L Carbon Dioxide 26 (22-32) mmol/L Anion Gap 7 (2-11) mmol/L BUN 9 (6-24) mg/dL Creatinine 0.63 (0.51-0.95) mg/dL Est GFR ( Amer) 113.7 (>60) Est GFR (Non-Af Amer) 94.0 (>60) BUN/Creatinine Ratio 14.3 (8-20) Glucose 195 H (70-100) mg/dL Lactic Acid (0.5-2.0) mmol/L Calcium 9.1 (8.6-10.3) mg/dL Total Bilirubin 0.80 (0.2-1.0) mg/dL AST 71 H (13-39) U/L ALT 47 (7-52) U/L Alkaline Phosphatase 140 H (34-104) U/L Troponin I 0.01 (<0.04) ng/mL Total Protein 7.4 (6.4-8.9) g/dL Albumin 3.6 (3.2-5.2) g/dL Globulin 3.8 (2-4) g/dL Albumin/Globulin Ratio 0.9 L (1-3) 06/16/18 Range/Units 06:19 WBC (3.5-10.8) 10^3/ul RBC (4.00-5.40) 10^6/ul Hgb (12.0-16.0) g/dl Hct (35-47) % MCV (80-97) fL MCH (27-31) pg MCHC (31-36) g/dl RDW (10.5-15) % Plt Count (150-450) 10^3/ul MPV (7.4-10.4) fL Neut % (Auto) (38-83) % Lymph % (Auto) (25-47) % Gila % (Auto) (0-7) % Eos % (Auto) (0-6) % Baso % (Auto) (0-2) % Absolute Neuts (auto) (1.5-7.7) 10^3/ul Absolute Lymphs (auto) (1.0-4.8) 10^3/ul Absolute Monos (auto) (0-0.8) 10^3/ul Absolute Eos (auto) (0-0.6) 10^3/ul Absolute Basos (auto) (0-0.2) 10^3/ul Absolute Nucleated RBC 10^3/ul Nucleated RBC % INR (Anticoag Therapy) (0.77-1.02) Sodium (135-145) mmol/L Potassium (3.5-5.0) mmol/L Chloride (101-111) mmol/L Carbon Dioxide (22-32) mmol/L Anion Gap (2-11) mmol/L BUN (6-24) mg/dL Creatinine (0.51-0.95) mg/dL Est GFR ( Amer) (>60) Est GFR (Non-Af Amer) (>60) BUN/Creatinine Ratio (8-20) Glucose (70-100) mg/dL Lactic Acid 1.4 (0.5-2.0) mmol/L Calcium (8.6-10.3) mg/dL Total Bilirubin (0.2-1.0) mg/dL AST (13-39) U/L ALT (7-52) U/L Alkaline Phosphatase (34-104) U/L Troponin I (<0.04) ng/mL Total Protein (6.4-8.9) g/dL Albumin (3.2-5.2) g/dL Globulin (2-4) g/dL Albumin/Globulin Ratio (1-3) Result Diagrams: 06/16/18 06:19 06/16/18 06:19 Lab Statement: Any lab studies that have been ordered have been reviewed, and results considered in the medical decision making process. Dizzy Course/Dx - Course Course Of Treatment: During the course of treatment, the patient is evaluated for acute onset dizziness upon wakening this morning. She denied any chest pain , shortness of breath, blurry vision or double vision. On physical examination , patient appears well, nondiaphoretic and nontoxic appearing. Neuro exam normal. No nystagmus bilaterally. She states this has never happened to her before. On arrival she is given 25 mg meclizine and subsequently 1 mg Ativan, both by mouth. Labs obtained are all WNL. She continues to have dizziness and another 25 mg meclizine was ordered and given. I have offered a CT scan of the brain to which she declines at this time. I discussed treatment options and I' ve also offered admission as approximate 3-4 hours after arrival, she continues to have dizziness. She also declines this. She states she would like to be treated at home and has family members at bedside who are willing to take over her care. She is prescribed Ativan as well as meclizine for at home for BPPV. - Diagnoses Differential Diagnosis/HQI/PQRI: Benign Paroxysmal Positional Vertigo, Vasovagal Reaction Provider Diagnoses: BPPV (benign paroxysmal positional vertigo) Discharge - Sign-Out/Discharge Documenting (check all that apply): Patient Departure - Discharge Plan Condition: Stable Disposition: HOME Prescriptions: LORazepam TAB(*) [Ativan 1 MG TAB (*)] 1 mg PO Q8H PRN #15 tab MDD 3 PRN Reason: Dizziness Meclizine TAB* [Antivert 12.5 TAB*] 12.5 mg PO QID #20 tab MDD 4 Patient Education Materials: Benign Paroxysmal Positional Vertigo (ED), Dizziness (ED) Referrals: Kimmy Ham MD [Primary Care Provider] - Additional Instructions: Please follow-up with your PCP in 2-3 days If you develop any worsening or changing symptoms, or your symptoms do not resolve with your at home medications, return to the ED You may take meclizine 12.5 up to 4 times daily If this does not improve your symptoms, he may take Ativan 1 mg up to 3 times daily It would be best if these were used intermittently These will make you very drowsy and you should always have someone at bedside - Billing Disposition and Condition Condition: STABLE Disposition: Home
[2018-06-16 07:57] LABS: Urine Appearance Clear; Urine Blood 1+ (Negative); Urine Color Amber; Urine Ketones Negative (Negative); Urine Protein Negative (Negative); Urine Red Blood Cell 1+(3-5/hpf) (Absent); Urine Specific Gravity 1.017 (1.010-1.030); Urine Urobilinogen Negative (Negative); Urine White Blood Cell Absent (Absent)
[2018-06-16] MEDS ORDERED: Meclizine TAB* 12.5 MG ONE (09:38)
[2018-06-16 11:25] VITALS: BP 130/64
== END 2018-06-16 11:25 | disposition home or self-care (01) ==
LOC: ED 05:34
DX: H81.10 Benign paroxysmal vertigo, unspecified ear (principal); R00.1 Bradycardia, unspecified; R11.0 Nausea; E11.8 Type 2 diabetes mellitus with unspecified complications; Z79.84 Long term (current) use of oral hypoglycemic drugs; I10 Essential (primary) hypertension; Z88.5 Allergy status to narcotic agent; Z88.8 Allergy status to other drugs, medicaments and biological substances
CPT/HCPCS: 36415; 71046; 80053; 81003; 81015; 83605; 84484; 85025; 85610; 93005; 99284; A9270-GY

== ENCOUNTER 2019-10-24 07:31 | Emergency (ER) | payer MEDICARE, OTHER ==
--- OUTSIDE RECORDS SUMMARY | 2019-10-24 07:37 | XMS REPORT | Summary of Care ---
:1950 Author Organization [facility] Address [address] [place] [address] Care Team Providers Name Role Phone Kimmy Ham MD Primary Care Provider Reason for Visit Reason Comments Other bleeding Encounter Details Date Type Department Care Team Description 10/13/2019 Office Visit [facility] [[email or web address]] Kia Moreno, Endometrial cancer [facility] [employer] (Primary Dx) [address] [phone] [id number] [phone] Allergies Active Allergy Reactions Severity Noted Date Comments Quinapril Hcl 09/01/2019 Tramadol-Acetaminophen 09/01/2019 documented as of this encounter (statuses as of 10/13/2019) Medications Medication Sig Dispensed Refills Start Date End Date Status Aspirin 81 MG Oral Tablet Take 81 mg by 0 Active mouth daily Nitroglycerin 0.[address] 0.4 mg 0 Active Sublingual Tablet under the Sublingual (NITROSTAT) tongue every 5 (five) minutes as needed for Chest pain metFORMIN HCl 1000 MG Take 1,000 mg 0 Active Oral Tablet (GLUCOPHAGE) by mouth Two times daily with meals Magnesium Oxide 400 Take 400 mg by 0 Active (241.3 Mg) MG Oral Tablet mouth daily (MAG-OX) hydroCHLOROthiazide 25 MG Take 25 mg by 0 Active Oral Tablet (HYDRODIURIL) mouth daily Glimepiride 2 MG Oral Take 2 mg by 0 Active Tablet (AMARYL) mouth every morning before breakfast dilTIAZem HCl ER Coated Take 240 mg by 0 Active Beads 240 MG Oral Capsule mouth daily Extended Release 24 Hour (CARDIZEM CD) Calcium Carbonate-Vitamin Take 1 tablet 0 Active D 250-125 MG-UNIT Oral by mouth daily Tablet (OSCAL) Bisoprolol Fumarate 5 MG Take 5 mg by 0 Active Oral Tablet (ZEBETA) mouth daily Betamethasone Apply topically 0 Active Dipropionate 0.05 % Two Times Daily External Ointment (DIPROLENE) documented as of this encounter (statuses as of 10/13/2019) Active Problems Problem Noted Date Endometrial cancer 07/29/2019 Cancer Staging: Pathologic stage from 07/30/2019: FIGO Stage IA (pT1a, pN0, cM0 ) - Signed by Johan Batista Jr., MD on 09/09/2019 Overview: IA grade 2 no VSI documented as of this encounter (statuses as of 10/13/2019) Social History Tobacco Use Types Packs/Day Years Used Date Never Smoker Smokeless Tobacco: Never Used Alcohol Use Drinks/Week oz/Week Comments Never Alcohol Habits Answer Date Recorded How often do you have a drink containing alcohol? Never 09/01/2019 How many drinks containing alcohol do you have on a typical Not asked day when you are drinking? How often do you have six or more drinks on one occasion? Not asked Sex Assigned at Date Recorded Not on file Job Start Date Occupation Industry Not on file Not on file Not on file Travel History Travel Start Travel End No recent travel history available. documented as of this encounter Last Filed Vital Signs Vital Sign Reading Time Taken Comments Blood Pressure 138/76 10/13/2019 11:17 AM EST Pulse 60 10/13/2019 11:17 AM EST Temperature - - Respiratory Rate 16 10/13/2019 11:17 AM EST Oxygen Saturation - - Inhaled Oxygen Concentration - - Weight 90.7 kg (200 lb) 10/13/2019 11:17 AM EST Height 152.4 cm (5') 10/13/2019 11:17 AM EST Body Mass Index 39.06 10/13/2019 11:17 AM EST documented in this encounter Progress Notes Kia Moreno NP - 10/13/2019 11:15 AM EST Subjective: HPI: The patient returns today for a postoperative visit. Bowel and bladder functions are returning to normal. Patient denies abnormal bleeding. Postoperative pain subsiding as expected. Patient presents today because she it still spotting after surgery that was in July. Oncology History: Endometrial cancer 06/09/2019 Initial Diagnosis Endometrial cancer 07/29/2019 Surgery Robotic assisted hysterectomy, BSO, right sentinel nodes IA grade 2, 1/23 mm invasion, No VSI, Nodes negative, washings negetive IHC stable 07/30/2019 - Cancer Staged Pathologic stage from 07/30/2019: FIGO Stage IA (pT1a, pN0, cM0) - Signed by Johan Batista Jr., MD on 09/09/2019 Medication List: Current Outpatient Medications: Aspirin 81 MG Oral Tablet, 81 mg, Oral, Daily Betamethasone Dipropionate 0.05 % External Ointment (DIPROLENE), Apply topically Two Times Daily Bisoprolol Fumarate 5 MG Oral Tablet (ZEBETA), 5 mg, Oral, Daily Calcium Carbonate-Vitamin D 250-125 MG-UNIT Oral Tablet (OSCAL), 1 tablet, Oral, Daily dilTIAZem HCl ER Coated Beads 240 MG Oral Capsule Extended Release 24 Hour (CARDIZEM CD), 240 mg, Oral, Daily Glimepiride 2 MG Oral Tablet (AMARYL), 2 mg, Oral, QAM AC hydroCHLOROthiazide 25 MG Oral Tablet (HYDRODIURIL), 25 mg, Oral, Daily Magnesium Oxide 400 (241.3 Mg) MG Oral Tablet (MAG-OX), 400 mg, Oral, Daily metFORMIN HCl 1000 MG Oral Tablet (GLUCOPHAGE), 1,000 mg, Oral, 2 x Daily with Meals Nitroglycerin 0.4 MG Sublingual Tablet Sublingual (NITROSTAT), 0.4 mg, Sublingual, Q5 Min PRN Allergies: Accupril [quinapril hcl] and Ultracet [tramadol-acetaminophen] Past Medical History: Diagnosis Date Breast cancer Diabetic neuropathy Endometrial cancer 07/29/2019 IA grade 2 no VSI Hypercholesterolemia Hypertension Non-insulin dependent type 2 diabetes mellitus Past Surgical History: Procedure Laterality Date BREAST LUMPECTOMY Left BREAST REDUCTION SURGERY CARDIAC CATHETERIZATION CATARACT EXTRACTION, BILATERAL COLONOSCOPY W/ POLYPECTOMY COMBINED HYSTEROSCOPY DIAGNOSTIC / D&C LAPAROSCOPIC HYSTERECTOMY W/ BILATERAL SALPINGOOPHORECTOMY AND NODES TUBAL LIGATION Objective: Visit Vitals BP 138/76 Pulse 60 Resp 16 Ht 1.524 m (5') Wt 90.7 kg (200 lb) BMI 39.06 kg/m Physical Exam Genitourinary: No vulval lesion noted. Vaginal exam comments: Cuff healed, no active bleeding, scant old blood on speculum - silver nitrate applied to questionable areas of tiny opening and puckering . Assessment: Encounter Diagnosis Name Primary? Endometrial cancer Yes Patient doing well post op. She will call if the spotting does not stop in 3 weeks. Plan: No follow-ups on file. She will return in December for her routine surveillance appointment. Kia Moreno NP [facility] [address] [facility] [address] Dept: [phone] signed by Kia Moreno NP at 10/13/2019 11 :54 AM ESTdocumented in this encounter Plan of Treatment Date Type Specialty Care Team Description 12/27/2019 Office Visit Gynecologic Oncology Johan Batisat Jr., MD [address] [place] [address] Health Maintenance Due Date Last Done Comments Hepatitis C Screening (B. 1950 [id number]) MMR Vaccines (1 of 1 - Standard 1951 series) Varicella Vaccines (1 of 2 - 1951 2-dose childhood series) Breast Cancer Screening 2 years 11/21/1999 Colon Cancer Screening 10 yrs 11/21/1999 Zoster Vaccines (1 of 2) 11/21/1999 DTaP,Tdap,and Td Vaccines (2 - Td) 11/14/2009 10/17/2009 Osteoporosis Screening 2 yr 2014 Pneumococcal Vaccine: 65+ Years (1 2014 of 2 - PCV13) Influenza Vaccine 05/11/2019 HIB Vaccines Aged Out No longer eligible based on patient's age to complete this topic Hepatitis A Vaccines Aged Out No longer eligible based on patient's age to complete this topic Hepatitis B Vaccines Aged Out No longer eligible based on patient's age to complete this topic IPV Vaccines Aged Out No longer eligible based on patient's age to complete this topic Pneumococcal Vaccine: Pediatrics Aged Out No longer eligible based on (0 to 5 Years) and At-Risk patient's age to complete Patients (6 to 64 Years) this topic documented as of this encounter Results Not on filedocumented in this encounter Visit Diagnoses Diagnosis Endometrial cancer - Primary Malignant neoplasm of corpus uteri, except isthmus documented in this encounter
--- OUTSIDE RECORDS SUMMARY | 2019-10-24 07:37 | XMS REPORT | Summary of Care ---
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 Officer Reason for Visit Reason Comments Follow Up Encounter Details Date Type Department Care Team Description 09/29/2019 Office Visit Ephraim Ham, Type 2 diabetes mellitus without complication, without long-term current use of insulin (HCC) (Primary Dx ); Practice Kimmy Cortes MD Chest pain, unspecified type; [address] Essential hypertension; [place] [address] [place] [address] Diabetes mellitus without complication (HCC); [phone] Microvascular angina (HCC); Need for vaccination; History of endometrial cancer; S/P JACEY (total abdominal hysterectomy); HX: breast cancer Allergies Active Allergy Reactions Severity Noted Date Comments Accupril Unknown Reaction 07/22/2007 MADE SICK Ultracet Unknown Reaction 07/22/2007 documented as of this encounter (statuses as of 09/29/2019) Medications Medication Sig Dispensed Refills Start End Status Date Date Calcium Take 1 Tab by 0 Active Carbonate-Vitamin D mouth DAILY. (CALCIUM 600+D PO) betamethasone Apply to rash 14 g 1 09/30/19 Active dipropionate 0.05 % once daily prn 19 Apply externally itching, max 2 CreamIndications: Rash weeks in a row Magnesium 400 MG Oral Take 1 Tab by 90 Cap 1 01/07/20 Active CapIndications: Type 2 mouth DAILY. 19 diabetes mellitus without complication, without long-term current use of insulin ([facility]) skin protectants Apply to dry 240 g 1 01/07/20 Active (EUCERIN,HYDROCERIN) skin twice a 19 Apply externally day as needed. CreamIndications: Dry skin nitroglycerin Place 1 Tab 25 Tab 3 09/29/19 Active (NITROSTAT) 0.4 MG under tongue 20 Sublingual SL EVERY FIVE TabIndications: Chest MINUTES pain, unspecified type NEEDED for chest pain. metFORMIN HCL 1000 MG Take 1 Tab by 180 Tab 1 09/29/19 Active Oral TabIndications: mouth TWICE 20 Type 2 diabetes DAILY. mellitus without Discontinue complication, without Glumetza long-term current use of insulin ([facility]) magnesium oxide Take 1 Tab by 90 Tab 3 09/29/19 Active (MAGNESIUM-OXIDE) 400 mouth DAILY. 20 (241.3 Mg) MG Oral TabIndications: Chest pain, unspecified type Lancets Does not apply by Does not 100 Each 09/29/19 Active MiscIndications: Type 2 apply route 20 diabetes mellitus DAILY. without complication, Brand:one without long-term touch Dx: current use of insulin E11.9 ([facility]) non-Insulin dependent Test Blood Glucose 1 time(s) A DAY hydrochlorothiazide Take 1 Tab by 90 Tab 1 09/29/19 Active (HCTZ, ORETIC) 25 MG mouth DAILY. 20 Oral TabIndications: Essential hypertension Glucose Blood (ONE 1 Strip by In 100 Each 09/29/19 Active TOUCH TEST STRIPS) In Vitro route 20 Vitro StripIndications: THREE TIMES Diabetes mellitus DAILY. Dx: without complication E11.9 ([facility]) glimepiride (AMARYL) 4 Take 1 Tab by 90 Tab 3 09/29/19 Active MG Oral TabIndications: mouth EVERY 20 Diabetes mellitus MORNING. without complication (HCC), Type 2 diabetes mellitus without complication, without long-term current use of insulin ([facility]) diltiazem (CARDIZEM CD) Take 1 Cap by 90 Cap 3 09/29/19 Active 240 MG Oral CAPSULE SR mouth DAILY. 20 24 HRIndications: Essential hypertension bisoprolol (ZEBETA) 5 Take 0.5 Tabs 45 Tab 3 09/29/19 Active MG Oral TabIndications: by mouth 20 Microvascular angina DAILY. ([facility]) aspirin (ECOTRIN) 81 MG Take 1 Tab by 100 Tab 3 09/29/19 Active Oral Tab ECIndications: mouth DAILY. 20 Microvascular angina ([facility]) Glucose Blood (ONE 1 Strip by In 100 Each 07/22/20 Discontinued TOUCH TEST STRIPS) In Vitro route 18 020 (Reorder) Vitro StripIndications: THREE TIMES Diabetes mellitus DAILY. Dx: without complication E11.9 ([facility]) Lancets Does not apply by Does not 100 Each 07/29/20 Discontinued Misc apply route 18 020 (Reorder) DAILY. Brand:one touch Dx: E11.9 non-Insulin dependent Test Blood Glucose 1 time(s) A DAY metFORMIN HCL 1000 MG Take 1 Tab by 180 Tab 1 02/10/20 Discontinued Oral TabIndications: mouth TWICE 020 (Reorder) Type 2 diabetes DAILY. mellitus without Discontinue complication, without Glumetza long-term current use of insulin ([facility]) nitroglycerin Place 1 Tab 25 Tab 3 05/20/20 Discontinued (NITROSTAT) 0.4 MG under tongue 020 (Reorder) Sublingual SL EVERY FIVE TabIndications: Chest MINUTES pain, unspecified type NEEDED for chest pain. ASPIRIN LOW DOSE 81 MG TAKE 1 TABLET 100 Tab 5 06/16/20 Discontinued Oral Tab ECIndications: BY MOUTH ONCE 020 (Duplicate Microvascular angina DAILY Order) ([facility]) bisoprolol (ZEBETA) 5 Take 0.5 Tabs 45 Tab 3 06/17/20 Discontinued MG Oral Tab by mouth 020 (Reorder) DAILY. diltiazem (CARDIZEM CD) TAKE 1 CAPSULE 30 Cap 11 07/06/20 Discontinued 240 MG Oral CAPSULE SR BY MOUTH ONCE 020 (Reorder) 24 HRIndications: DAILY Essential hypertension hydrochlorothiazide TAKE 1 TABLET 90 Tab 0 08/05/20 Discontinued (HCTZ, ORETIC) 25 MG BY MOUTH ONCE 020 (Reorder) Oral TabIndications: DAILY Essential hypertension MAGNESIUM-OXIDE 400 TAKE 1 TABLET 90 Tab 0 08/22/19 Discontinued (241.3 Mg) MG Oral Tab BY MOUTH ONCE 20 020 (Reorder) DAILY glimepiride (AMARYL) 2 TAKE 2 TABLETS 190 Tab 0 09/08/19 Discontinued MG Oral TabIndications: BY MOUTH EVERY 20 020 (Reorder) Diabetes mellitus MORNING without complication (HCC), Type 2 diabetes mellitus without complication, without long-term current use of insulin (HCC) documented as of this encounter (statuses as of 09/29/2019) Active Problems Problem Noted Date S/P JACEY (total abdominal hysterectomy) 09/29/2019 History of endometrial cancer 09/29/2019 HX: breast cancer 04/07/2019 Microvascular angina 08/21/2018 Chest pain 06/05/2018 BMI 36.0-36.9,adult 04/17/2018 Incomplete right bundle branch block 10/04/2011 DM (diabetes mellitus) 10/27/2009 Morbid obesity 09/28/2008 Breast cancer Overview: Left breast lumpectomy - chemo/radiation Hyperlipidemia Hypertension Microcytic anemia Overview: NL Iron, Nl Hgb electrophoresis Fatty liver documented as of this encounter (statuses as of 09/29/2019) Resolved Problems Problem Noted Date Resolved Date Endometrial polyp 05/18/2019 09/29/2019 Overview: Was diagnosed on ultrasound Postmenopausal bleeding 05/18/2019 09/29/2019 Microcytosis 10/17/2009 03/09/2015 documented as of this encounter (statuses as of 09/29/2019) Immunizations Name Administration Dates Next Due Hep A / Hep B Combined Vaccine (Adult) 09/29/2019 Influenza (IM) Preservative Free 09/29/2019, 05/14/2018, 05/14/2017, 05/23/2014, 04/28/2012, 05/22/2011, 05/11/2010 Influenza Vaccine High Dose 05/15/2016 PNEUMOCOCCAL POLYSACCHARIDE VACCINE 08/21/2018, 09/06/2011 Pneumococcal Conjugate(13 Valent) 05/22/2016 TDAP Vaccine 10/17/2009 documented as of this encounter Social History Tobacco Use Types Packs/Day Years Used Date Never Smoker Smokeless Tobacco: Never Used Alcohol Use Drinks/Week oz/Week Comments No 0 Standard drinks or equivalent 0.0 Social Isolation Answer Date Recorded In a typical week, how many times do you More than three times a week 2018 talk on the phone with family, friends, or neighbors? How often do you get together with friends More than three times a week 09/09 or relatives? How often do you attend yazidism or More than 4 times per year 09/09/2018 baptism services? Do you belong to any clubs or Yes 09/09/2018 organizations such as yazidism groups, unions, fraternal or athletic groups, or school groups? How often do you attend meetings of the More than 4 times per year 09/09/2018 clubs or organizations you belong to? Are you now , , , 09/09/2018 , never or living with a partner? Physical Activity Answer Date Recorded On average, how many days per week do you engage in moderate to 3 days 2018 strenuous exercise (like walking fast, running, jogging, dancing, swimming, biking, or other activities that cause a light or heavy sweat)? On average, how many minutes do you engage in exercise at this 60 min 2018 level? Stress Answer Date Recorded Do you feel stress - tense, restless, nervous, or anxious, Not at all 2018 or unable to sleep at night because your mind is troubled all the time - these days? Financial Resource Strain Answer Date Recorded How hard is it for you to pay for the very basics like Not hard at all 2018 food, housing, medical care, and heating? Intimate Partner Violence Answer Date Recorded Within the last year, have you been afraid of your partner or No 09/09/2018 ex-partner? Within the last year, have you been humiliated or emotionally No 09/09/2018 abused in other ways by your partner or ex-partner? Within the last year, have you been kicked, hit, slapped, or No 09/09/2018 otherwise physically hurt by your partner or ex-partner? Within the last year, have you been raped or forced to have any No 09/09/2018 kind of sexual activity by your partner or ex-partner? Food Insecurity Answer Date Recorded Within the past 12 months, you worried that your food would Never true 2018 run out before you got money to buy more. Within the past 12 months, the food you bought just didn't Never true 2018 last and you didn't have money to get more. Transportation Needs Answer Date Recorded In the past 12 months, has lack of transportation kept you from No 09/09/2018 medical appointments or from getting medications? In the past 12 months, has lack of transportation kept you from No 09/09/2018 meetings, work, or getting things needed for daily living? Sex Assigned at Date Recorded Not on file documented as of this encounter Last Filed Vital Signs Vital Sign Reading Time Taken Comments Blood Pressure 130/80 09/29/2019 9:28 AM EST Pulse 52 09/29/2019 9:28 AM EST Temperature 36.2 09/29/2019 9:28 AM EST C (97.1 F) Respiratory Rate - - Oxygen Saturation 97% 09/29/2019 9:28 AM EST Inhaled Oxygen Concentration - - Weight 90.7 kg (200 lb) 09/29/2019 9:28 AM EST Height 152.4 cm (5') 09/29/2019 9:28 AM EST Body Mass Index 39.06 09/29/2019 9:28 AM EST documented in this encounter Patient Instructions Patient InstructionsKimmy Ham MD - 09/29/2019 9:20 AM JARVIS sent all your medications to [facility]. Please do non-fasting laboratory tests next month and I will send results. Follow up with me in 4 months and do another A1C then documented in this encounter Progress Notes Kimmy Ham MD - 09/29/2019 9:20 AM EST Nursing Notes: Destiny Narvaez LPN 09/29/2019 9:40 AM Signed Chief Complaint Patient presents with ? Follow Up SUBJECTIVE: Cristina Delgado is an 68-y.o. female who presents for evaluation and treatment of Type 2 diabetes mellitus. Family history: positive for diabetes in the patient?s Father. Previous treatment modalities employed include diet and oral agents. Current treatment includes diet and oral agents. She did not like metformin ER: Came out in stool whole, so went back to regular. She wants all prescriptions sent to a new pharmacy, [facility]. She was found to have endometrial cancer since last visit, plan was a Dr Sahra MARI She opted to do this in [place]. She was seen at [facility] 09/20/2019, Ms Moreno DIRECTOR OF ENTERPRISE STRATEGY 07/29/2019 Surgery Robotic assisted hysterectomy, BSO, right sentinel nodes IA grade 2, 1/23 mm invasion, No VSI, Nodes negative, washings negetive IHC stable 07/30/2019 - Cancer Staged Pathologic stage from 07/30/2019: FIGO Stage IA (pT1a, pN0, cM0) - Signed by Johan Batista Jr., MD on 09/09/2019 Did not need chemotx or radiation treatment. Follow up is every 3 months. Health Maintenence: reviewed. She agrees to influenza and Hepatitis vaccines today. We do not have high dose influenza, she wants regular dose today. She saw Maurisio Cruz MD 06/22/18 for follow up of chest pain. She had a cardiac cath for ongoing chest pain. This showed non-obstructing CAD and did not require intervention. Holter 08/17/18 showed NSR, frequent S. Collin without heart block, brief non- sustained atrial tach. Current monitoring regimen: home blood tests - once daily Home blood sugar records: Some 67, 77 in middle of the night She takes 2 glimepride in am Lab Results Component Value Date GLYCO 8.6 (H) 07/16/2019 GLYCO 7.7 (H) 03/31/2019 GLYCO 8.2 (H) 12/30/2018 Last eye exam: 07/24/18 Last microalbumin: 12/2018 Last microfilament foot exam: 12/30/18 LDL: Lab Results Component Value Date CHOL 133 03/31/2019 TRIG 91 03/31/2019 HDL 39 (L) 03/31/2019 LDL 76 03/31/2019 LDLHDLRATIO 1.9 03/31/2019 CHOLHDLRATIO 3.4 03/31/2019 Lab Results Component Value Date NA 138 07/16/2019 K 3.7 07/16/2019 CL 101 07/16/2019 CO2 28 07/16/2019 GLUCOSE 114 (H) 07/16/2019 BUN 15 07/16/2019 CREATININE 0.7 07/16/2019 CALCIUM 9.9 07/16/2019 TP 8.0 07/16/2019 ALBUMIN 3.8 07/16/2019 AST 67 (H) 07/16/2019 ALT 34 07/16/2019 ALK 115 07/16/2019 TBILI 0.9 07/16/2019 EGFR >60 07/16/2019 Lab Results Component Value Date TSH 3.52 10/21/2006 Immunizations: Immunization History Administered Date(s) Administered ? Hep A / Hep B Combined Vaccine (Adult) 09/29/2019 ? Influenza (IM) Preservative Free 05/11/2010, 05/22/2011, 04/28/2012, , 05/14/2017,05/14/2018, 09/29/2019 ? Influenza Vaccine High Dose 05/15/2016 ? PNEUMOCOCCAL POLYSACCHARIDE VACCINE 09/06/2011, 08/21/2018 ? Pneumococcal Conjugate(13 Valent) 05/22/2016 ? TDAP Vaccine 10/17/2009 Pended Date(s) Pended ? Influenza Vaccine 65 Yrs + 05/06/2019 ? Influenza Vaccine High Dose 04/14/2019 Diabetic complications: mild foot tingling, ? CAD Cardiovascular risk factors: lipids, diabetes mellitus and obesity Outpatient Medications as of 01/06/2019 Medication Sig Dispense Refill ? aspirin (ECOTRIN) 81 MG Oral Tab EC Take 1 Tab by mouth DAILY. 30 Tab 0 ? betamethasone dipropionate 0.05 % Apply externally Cream Apply to rash once daily prn itching, max 2 weeks in a row 14 g 1 ? bisoprolol (ZEBETA) 5 MG Oral Tab Take 0.5 Tabs by mouth DAILY. 45 Tab 3 ? Calcium Carbonate-Vitamin D (CALCIUM 600+D PO) Take 1 Tab by mouth DAILY. ? CARTIA XT 240 MG Oral CAPSULE SR 24 HR take 1 capsule by mouth once daily 30 Cap 5 ? glimepiride (AMARYL) 2 MG Oral Tab take 2 tablet by mouth every morning 90 Tab 1 ? Glucose Blood (ONE TOUCH TEST STRIPS) In Vitro Strip 1 Strip by In Vitro route THREE TIMES DAILY. Dx: E11.9 100 Each 11 ? hydrochlorothiazide (HCTZ, ORETIC) 25 MG Oral Tab take 1 tablet by mouth once daily 90 Tab 1 ? Lancets Does not apply Misc by Does not apply route DAILY. Brand:one touch Dx: E11.9 non-Insulin dependent Test Blood Glucose 1 time(s) A DAY 100 Each 11 ? losartan (COZAAR) 50 MG Oral Tab Take 1 Tab by mouth DAILY. Stop olmasartan 30 Tab 3 ? Magnesium 400 MG Oral Cap Take 1 Tab by mouth DAILY. 90 Cap 1 ? meclizine (ANTIVERT) 12.5 MG Oral Tab Take 1 Tab by mouth TWO TIMES DAILY NEEDED for dizziness/vertigo. 20 Tab 0 ? metFORMIN HCL 1000 MG Oral Tab take 1 tablet by mouth twice a day for diabetes 180 Tab 3 ? nitroglycerin (NITROSTAT) 0.4 MG Sublingual SL Tab Place 1 Tab under tongue EVERY FIVE MINUTES NEEDED for chest pain. 25 Tab 3 ? Rosuvastatin Calcium (CRESTOR) 20 MG Oral Tab take 1 tablet by mouth once daily 90 Tab 1 Allergies Allergen Reactions ? Accupril Unknown Reaction MADE SICK ? Ultracet Unknown Reaction Past Medical History: Diagnosis Date ? Breast cancer (HCC) 2005 Left breast lumpectomy - chemo/radiation ? Bursitis of shoulder left ? Cardiomyopathy ? Diabetes mellitus type II eye 06/2013, feet 05/24 ? Endometrial cancer (HCC) 06/08/2019 ? Endometrial cancer (HCC) stage IA, pT1a,pN0, cM0 ? Fatty liver ? History of breast surgery /[place] breast reduction [place] breast Ca [id number] ? History of cardiac cath 06/05/2018 Mild atherosclerotic coronary artery disease with no significant lesions ? History of chemotherapy ? Hyperlipidemia ? Hypertension ? Microcytic anemia NL Iron, NL Hgb electrophoresis ? Poisoning, glutethimide group ? Postmenopausal ? Tendonitis Right wrist ? Tubulovillous adenoma colonoscopy 2011 - cecum, hemicolectomy Past Surgical History: Procedure Laterality Date ? BILAT TUBAL CRUSHING NEC 1975 ? CATHETERIZATION HEART LEFT N/A 06/05/2018 Procedure: CATHETERIZATION HEART LEFT; Surgeon: Hima Rodriges MD; Location: [facility]; Laterality: N/A; CORONARY ARTERIOGRAM VIA RIGHT RADIAL HEMOBAND RIGHT RADIAL ? COLONOSCOPY DIAGNOSTIC 12/2010 cecal polyp 3 cm - dysplasia ? EGD (SHIRLEY / NON SHIRLEY) 12/2010 gastric polyp - inflammation ? OTHER AND UNSPECIFIED HYSTERECTOMY 07/29/2019 Robotic assisted hysterectomy, BSO, right sentinel nodes, [place] ? PLASTIC SURGERY: BREAST AUGMENTATION 05/18/2012 Reduction bilateral; done for radiation damage after breast cancer. ? WY BIOPSY OF BREAST, INCISIONAL 12/04/2012 Left side ? WY COLONOSCOPY FLX W/REMOVAL OF FOREIGN BODY(S) 03/23/07 ? WY EXCIS UTERINE FIBROID,VAG APPRCH N/A 06/07/2019 Procedure: hysteroscopy, polypectomy and uterine curettage; Surgeon: Easton Bocanegra MD; Location: [facility] ? WY MASTECTOMY, PARTIAL 06/2006 Left ? RIGHT HEMICOLECTOMY 01/30/2011 laparoscopic - tubulovillous adenoma, no malignancy noted. Family History Problem Relation Age of Onset ? Cancer Mother lung ( ) ? Hypertension Mother ? Diabetes Father ? Heart Failure Father ? Heart Father ? Hypertension Sister ? Alcohol/Drug Brother ? Thyroid Daughter ? No Known Problems Daughter Social History Tobacco Use ? Smoking status: Never Smoker ? Smokeless tobacco: Never Used Substance Use Topics ? Alcohol use: No Alcohol/week: 0.0 standard drinks Holter 08/17/17: CONCLUSION: This 24-hour Holter monitor recording reveals frequent sinus bradycardia, without pauses or heart block, and very brief episodes of nonsustained atrial tachycardia as described. Cardiac Studies: Exercise SPECT at [facility] 03/11/18: -Achieved 7 METs and 99% MPHR -LVEF 56% -TID 1 -Small reversible defect near the apex that is only seen on attenuation correction images. ? Left Heart Cath 06/05/2018: SUMMARY: Mild atherosclerotic coronary artery disease with no significant ?lesions. ?TTE 05/07/18: FINAL IMPRESSION: Concentric LV remodeling with upper normal left atrial size. Normal LV systolic function with no regional wall motion abnormalities; estimated LVEF 55-60%. Grade I (mild) diastolic dysfunction. Normal right heart size and RV systolic function. Aortic valve sclerosis without significant stenosis. No hemodynamically significant valvular abnormalities. No pericardial effusion. ? Exercise SPECT at [facility] 03/11/18: -Achieved 7 METs and 99% MPHR -LVEF 56% -TID 1 -Small reversible defect near the apex that is only seen on attenuation correction images. Exercise Stress Echo 10/14/2011: Baseline Echocardiogram: ?LV size is normal and show concentric hypertrophy and global LV systolic ?function is normal at 55% . ?No regional wall motion abnormalities. ?No hemodynamically significant valvular disease by pulse wave, continuous ?wave and color flow doppler analysis. ?Normal LA, RA and RV size and function. FINAL IMPRESSION: This study is negative for ischemia by clinical, EKG, and echo criteria at a low workload and an adequate heart rate. ? Review Of Systems Skin: negative for rash Eyes: negative for blurred vision or vision changes Ears/Nose/Throat: negative Respiratory: Denies shortness of breath or URI symptoms Cardiovascular: negative for current chest pain Gastrointestinal: negative for abdominal pain, difficulty swallowing Neurologic: negative for dizziness, syncope Hematologic/Lymphatic/Immunologic: negative for unexpected weight loss Endocrine: negative for polydipsia, polyuria OBJECTIVE: BP 130/80 | Pulse 52 | Temp 97.1 F (36.2 C) | Ht 5' (1.524 m) | Wt 200 lb (90.7 kg) | SpO2 97% | BMI 39.06 kg/m General appearance: alert, no distress, oriented times 3 Skin: Skin color, texture, turgor normal. She has a raised irregular dark lesion right upper back, black in color, a dark nodule on each thigh and one arm. These are the ears that are pruritic to her. Eyes: conjunctivae/corneas clear. PERRL, EOM's grossly intact. Ears: negative findings: external ears normal to inspection and palpation, TM's clear Oropharynx: negative findings: lips normal without lesions, palpation of salivary glands negative Neck: Neck supple. No cervical or supraclavicular adenopathy. Thyroid symmetric , normal size. Carotids 4/4 without bruits. Lungs:. Lungs clear with good aeration. Chest symmetrical. Normal breath sounds bilaterally. Heart: Regular rate and rhythm. No murmurs, clicks or gallops. Abdomen: Abdomen soft, non-tender. BS normal. No masses, organomegaly or hernia. No bruits. Extremities: Extremities without deformities, edema, or skin discoloration. Station and gait normal. Peripheral pulses: dorsalis pedis=4/4, Neuro: Gait normal, strength grossly normal and symmetric. Left foot Diabetic foot exam: Visual exam: normal Sensory: Filament test: present Pulse: a pulse was present Right foot diabetic exam Visual exam: normal Sensory: Filament test: present Pulse: a pulse was present ASSESSMENT/PLAN: ICD-9-CM ICD-10-CM 1. Type 2 diabetes mellitus without complication, without long-term current use of insulin (HCC) 250.00 E11.9 metFORMIN HCL 1000 MG Oral Tab Lancets Does not apply Misc glimepiride (AMARYL) 4 MG Oral Tab GLYCOHEMOGLOBIN A1C MICROALBUMIN, RANDOM URINE W/ CREATININE 2. Chest pain, unspecified type 786.50 R07.9 nitroglycerin (NITROSTAT) 0.4 MG Sublingual SL Tab magnesium oxide (MAGNESIUM-OXIDE) 400 (241.3 Mg) MG Oral Tab 3. Essential hypertension 401.9 I10 hydrochlorothiazide (HCTZ, ORETIC) 25 MG Oral Tab diltiazem (CARDIZEM CD) 240 MG Oral CAPSULE SR 24 HR COMPREHENSIVE METABOLIC PANEL 4. Diabetes mellitus without complication (HCC) 250.00 E11.9 Glucose Blood ( ONE TOUCH TEST STRIPS) In Vitro Strip glimepiride (AMARYL) 4 MG Oral Tab WY HEPATITIS A / HEPATITIS B COMBO (ADULT) 5. Microvascular angina (HCC) 413.9 I20.8 bisoprolol (ZEBETA) 5 MG Oral Tab aspirin (ECOTRIN) 81 MG Oral Tab EC 6. Need for vaccination V05.9 Z23 WY FLU VACCINE PRES FREE 6MOS+ ADMINISTRATION VACCINE SINGLE WY HEPATITIS A / HEPATITIS B COMBO (ADULT) ADMINISTRATION VACCINE EACH ADDITIONAL X__UNITS 7. History of endometrial cancer V10.42 Z85.42 8. S/P JACEY (total abdominal hysterectomy) V88.01 Z90.710 9. HX: breast cancer V10.3 Z85.3 Hypertension is controlled. A1C is not at goal. She agrees to work on diet and repeat laboratory tests next month Rx: FRANCISCO? aRB Statin? Yes Metformin? Yes Reviewed concepts of diabetes self-management stressing the primary role of the patient in monitoring and maintaining control of Diabetes. Recommended diet, exercise, and weight loss. Follow up next month after laboratory tests are done. Patient Instructions [facility] Please do non-fasting laboratory tests next month and I will send results. Follow up with me in 4 months and do another A1C then Author: Kimmy Ham MD 09/29/2019 11:21 documented in this encounter Plan of Treatment Date Type Specialty Care Team Description 11/02/2019 Lab Internal Medicine 01/25/2020 Office Visit Family Practice Kimmy Ham MD [address] [place] [address] [phone] Name Type Priority Associated Diagnoses Order Schedule ADMINISTRATION VACCINE Procedures Routine Need for vaccination Ordered: SINGLE ADMINISTRATION VACCINE Procedures Routine Need for vaccination Ordered: EACH ADDITIONAL X__UNITS GLYCOHEMOGLOBIN A1C Lab Routine Type 2 diabetes Every 12 Weeks for 4 mellitus without Occurrences starting complication, without 09/29/2019 until long-term current use 09/29/2020 of insulin ([facility]) COMPREHENSIVE METABOLIC Lab Routine Essential Expected: 10/27/2019 PANEL hypertension (Approximate), Expires: 09/29/2020 MICROALBUMIN, RANDOM Lab Routine Type 2 diabetes Expected: 10/27/2019 URINE W/ CREATININE mellitus without (Approximate), complication, without Expires: 03/27/2020 long-term current use of insulin (HCC) Health Maintenance Due Date Last Done Comments HEPATITIS A IMMUNIZATION 1951 SERIES (1 of 2 - Risk 2-dose series) ZOSTER IMMUNIZATION SERIES 11/21/1999 (1 of 2) INFLUENZA VACCINE (#1) 2019 05/14/2018, 05/14/2017, 05/15/2016, Additional history exists FOOT EXAM 04/17/2019 04/17/2018, 04/17/2018, 04/17/2018, Additional history exists MEDICARE ANNUAL WELLNESS 09/09/2019 09/09/2018, 05/15/2016 VISIT HEMOGLOBIN A1C 10/15/2019 07/16/2019, 03/31/2019, 12/30/2018, Additional history exists DTaP/Tdap/Td Vaccines (2 - 10/18/2019 10/17/2009 Tdap) URINE MICROALBUMIN 12/31/2019 12/30/2018, 10/02/2017, 05/15/2016, Additional history exists LIPID DISORDER SCREENING 03/31/2020 03/31/2019, 06/19/2018, 10/02/2017, Additional history exists MAMMOGRAM (SCREENING) 04/21/2020 04/21/2019, 02/26/2018, 02/25/2017, Additional history exists DEPRESSION SCREENING 09/29/2020 09/29/2019 FALL RISK ASSESSMENT 09/29/2020 09/29/2019, 09/29/2019 Diabetic Eye Exam 10/20/2020 10/20/2018, 10/20/2018, 07/24/2018, Additional history exists Colonoscopy 02/10/2021 02/10/2018, 02/07/2015, 01/04/2015 (Postponed), Additional history exists OSTEOPOROSIS SCREENING 12/14/2022 12/14/2012, 12/13/2010 HEPATITIS C SCREENING Completed 05/08/2010, 03/25/2007, 03/05/2000, Additional history exists PNEUMOCOCCAL 65+YRS Completed 08/21/2018, 05/22/2016, 09/06/2011 HPV IMMUNIZATION SERIES Aged Out No longer eligible based on patient's age to complete this topic MENINGOCOCCAL VACCINE IMM Aged Out No longer eligible based on patient's age to complete this topic documented as of this encounter Goals Goal Patient Goal Associated Recent Patient-Stated? Author Type Problems Progress Blood Pressure Blood Pressure 130/80 No Ana, < 140/90 (09/29/2019 SHEREE Paulino 9:28 AM EST) Note: This is an individualized treatment (blood pressure) goal for Cristina Delgado: Displayed above (on the left) is your goal for blood pressure control. Your most recent blood pressure is also shown above, on the right. You should try to achieve blood pressures that are lower than your goal listed above (on the left). Glycohemoglobin A1c < 7.0 Diabetes 8.6 (07/16/2019 8:26 No Lora Perez FNP AM EST) Note: This is an individualized treatment (diabetes control, HgbA1C) goal for Cristina Delgado: Displayed above is your progress towards your HgbA1C goal. Your goal is shown above (on the left); your most recent HgbA1C is shown on the right. Note that lower numbers are better. Weight loss vs. 18 mo Lifestyle 7 (09/29/2019 9:28 AM No Lora Perez FNP max (lbs) >= 10 EST) Note: This is an individualized lifestyle goal for Cristina Delgado: Your body mass index (BMI) is more than 30. You should lose weight. A reasonable starting goal is to lose 10 pounds. Displayed above is how many pounds you have lost thus far towards your 10 pound weight loss goal. Keep immunizations current Lifestyle Lora Umana FNP Note: This is an individualized lifestyle goal for Cristina Delgado: Please be sure to keep up-to-date on recommended immunizations. For example, this would include a yearly influenza vaccine. Immunization status can be seen by looking at the Health Maintenance sections of your [facility], Plan of Care, and any After Visit Summaries. Take all prescribed medications as Self-management No Lora Perez FNP directed Note: This is an individualized self-management goal for Cristina Delgado: Please take all prescribed medications as directed. 1. Do not skip doses. If you cannot afford your medications, talk with your doctor. 2. Use a pill reminder system such as a pill box if needed. Your pharmacist can help you with this. 3. Contact your Pharmacy 5 days before your medication runs out. If you cannot take your medications for any reasons, talk with your doctor. 4. Please bring all of your medication bottles and inhalers (or a list of all your medications/inhalers) with you to every visit. Potential barriers to meeting all of your care plan goals will continue to be addressed on an ongoing basis. documented as of this encounter Results Not on filedocumented in this encounter Visit Diagnoses Diagnosis Chest pain, unspecified type Type 2 diabetes mellitus without complication, without long-term current use of insulin (HCC) Essential hypertension Unspecified essential hypertension Diabetes mellitus without complication (HCC) Type II or unspecified type diabetes mellitus without mention of complication, not stated as uncontrolled Microvascular angina (HCC) Need for vaccination Need for prophylactic vaccination and inoculation against unspecified single disease History of endometrial cancer Personal history of malignant neoplasm of other parts of uterus S/P JACEY (total abdominal hysterectomy) Acquired absence of both cervix and uterus HX: breast cancer Personal history of malignant neoplasm of breast documented in this encounter Guarantor Name Account Type Relation to Date of Phone Billing Patient Address Cristina Delgado Personal/Family [address] (Home) [place], [place] [phone] (Work) documented as of this encounter"
--- OUTSIDE RECORDS SUMMARY | 2019-10-24 07:38 | XMS REPORT | Summary of Care ---
:1950 Author Organization [facility] Address [address] [place] [address] Care Team Providers Name Role Phone Kimmy Ham MD Primary Care Provider Reason for Visit Reason Comments Post-op Encounter Details Date Type Department Care Team Description 09/20/2019 Office Visit [facility] Kia Moreno, Endometrial cancer [employer] [facility] [employer] (Primary Dx) [address] [phone] [phone] Allergies Active Allergy Reactions Severity Noted Date Comments Quinapril Hcl 09/01/2019 Tramadol-Acetaminophen 09/01/2019 documented as of this encounter (statuses as of 09/20/2019) Medications Medication Sig Dispensed Refills Start Date [...] as of this encounter (statuses as of 09/20/2019) Active Problems Problem Noted Date Endometrial cancer 07/29/2019 Cancer Staging: Pathologic stage from 07/30/2019: FIGO Stage IA (pT1a, pN0, cM0 ) - Signed by Johan Batista Jr., MD on 09/09/2019 Overview: IA grade 2 no VSI documented as of this encounter (statuses as of 09/20/2019) Social History Tobacco Use Types Packs/Day Years [...] Sign Reading Time Taken Comments Blood Pressure 132/68 09/20/2019 12:28 PM EST Pulse 65 09/20/2019 12:28 PM EST Temperature - - Respiratory Rate 16 09/20/2019 12:28 PM EST Oxygen Saturation - - Inhaled Oxygen Concentration - - Weight 90.7 kg (200 lb) 09/20/2019 12:28 PM EST Height 152.4 cm (5') 09/20/2019 12:28 PM EST Body Mass Index 39.06 09/20/2019 12:28 PM EST documented in this encounter Progress Notes Kia Moreno NP - 09/20/2019 11:30 AM EST Subjective: HPI: The patient returns today for a postoperative visit. Bowel and bladder functions are returning to normal. Patient denies abnormal bleeding. Postoperative pain subsiding as expected. Oncology History: Endometrial cancer 06/09/2019 Initial Diagnosis [...] NODES TUBAL LIGATION Objective: Visit Vitals BP 132/68 Pulse 65 Resp 16 Ht 1.524 m (5') Wt 90.7 kg (200 lb) BMI 39.06 kg/m Physical Exam Genitourinary: No vulval lesion noted. Vaginal exam comments: Cuff healing, small open area with scant old blood. Cervix is absent. Uterus is absent. No right or left adnexal mass present. Right adnexa not tender. Left adnexa not tender. Abdominal: General: A surgical scar is present. Bowel sounds are normal. Palpations: Abdomen is soft. Assessment: Encounter Diagnosis Name Primary? Endometrial cancer Yes Patient doing well post op. Plan: Return in about 3 months (around 12/19/2019) for follow up with Dr. Batista. Kia Moreno NP [facility] [address] [address] Dept: [phone] signed by Kia Moreno NP at 09/20/2019 12 :54 PM ESTdocumented in this encounter Plan of Treatment Health Maintenance Due Date Last Done Comments Hepatitis C Screening (B. 1950 [id number]) MMR Vaccines (1 of 1 - Standard 1951 series) Varicella Vaccines (1 of 2 - 1951 2-dose childhood series) DTaP,Tdap,and Td Vaccines (1 - 1956 Tdap) Breast Cancer Screening 2 years 11/21/1999 Colon Cancer Screening 10 yrs 11/21/1999 Zoster Vaccines (1 of 2) 11/21/1999 Osteoporosis Screening 2 yr 2014 Pneumococcal Vaccine: [...] Years) and At-Risk patient's age to complete this Patients (6 to 64 Years) topic documented as of this encounter Results Not on filedocumented in this encounter Visit Diagnoses Diagnosis Endometrial cancer - Primary Malignant neoplasm of corpus uteri, except isthmus documented in this encounter
[2019-10-24 07:44] VITALS: BP 125/66
--- NOTE | 2019-10-24 08:31 | UC ---
Back Pain HPI - HPI Summary HPI Summary: patient was reaching in refrigerator 3 days ago and experienced Low back pain that radiates to L leg, no numbness, or incontinence she has been using heat pad and ibuprofen 400mg with some relief, but pain persists today has had same symps years ago and resolved with muscle relaxer pain better if sitting or lying, worse when gets up and ambulates - History of Current Complaint Chief Complaint: UCBackPain Stated Complaint: PULLED MUSCLE Time Seen by Provider: 10/24/19 08:02 Hx Obtained From: Patient Onset/Duration: Sudden Onset Timing: Constant Severity Initially: Severe Severity Currently: Moderate Pain Intensity: 9 Back Pain: Is Discrete @ - lower back - more on L Character: Throbbing, Spasmodic, Stiffness Aggravating Factor(s): Movement Alleviating Factor(s): Rest, Position, Heat Associated Signs And Symptoms: Negative: Fever, Weakness, Numbness, Tingling, Bladder Incontinence, Bowel Incontinence Related History: Similar Episode Dx As - low back strain - Allergies/Home Medications Allergies/Adverse Reactions: Allergies Allergy/AdvReac Type Severity Reaction Status Date / Time quinapril Allergy Dizziness Verified 10/24/19 07:44 tramadol [From Ultracet] Allergy See Comment Verified 10/24/19 07:44 Home Medications: Home Medications Ibuprofen TAB* [Advil TAB*] 400 mg PO Q6HR PRN 07/23/13 [History Confirmed 10/23] metFORMIN* [Glucophage 1000 MG TAB *] 1,000 mg PO BID 07/23/13 [History Confirmed 10/24/19] Glimepiride (NF) 1 mg PO QAM 03/10/18 [History Confirmed 10/24/19] Naproxen TAB* [Naprosyn 250 mg TAB*] 500 mg PO BID WITH MEALS PRN 03/10/18 [ History Confirmed 10/24/19] Pravastatin (NF) [Pravachol (NF)] 20 mg PO DAILY 03/10/18 [History Confirmed ] dilTIAZem HCl [Cartia Xt] 240 mg PO DAILY 03/10/18 [History Confirmed 10/24/19] Hydrochlorothiazide TAB* [Hydrodiuril TAB*] 25 mg PO DAILY #30 tab 03/11/18 [Rx Confirmed 10/24/19] Aspirin 81 mg CHEW TAB* 81 mg PO DAILY 06/16/18 [History Confirmed 10/24/19] Glimepiride [Amaryl] 1 mg PO DAILY 06/16/18 [History Confirmed 10/24/19] LORazepam TAB(*) [Ativan 1 MG TAB (*)] 1 mg PO Q8H PRN #15 tab MDD 3 06/16/18 [ Rx Confirmed 10/24/19] Magnesium Oxide [Mag-Oxide] 400 mg PO DAILY 06/16/18 [History Confirmed 10/24/19 ] Nitroglycerin 0.4 mg SL TID 06/16/18 [History Confirmed 10/24/19] Olmesartan Medoxomil 20 mg PO DAILY 06/16/18 [History Confirmed 10/24/19] Methocarbamol TAB* [Robaxin 500 MG TAB*] 750 mg PO TID PRN #9 tab 10/24/19 [Rx] PMH/Surg Hx/FS Hx/Imm Hx Previously Healthy: Yes Endocrine History: Diabetes, Dyslipidemia Cardiovascular History: Hypertension Other History Of: Negative For: Anticoagulant Therapy - Surgical History Surgical History: Yes Surgery Procedure, Year, and Place: LUMPECTOMY. BOWEL RECECTION & POLYP REMOVAL 2009. BL TUBAL LIGATION, LEFT BREAST MASTECTOMY - Family History Known Family History: Positive: Cardiac Disease, Hypertension, Diabetes, Respiratory Disease Family History: Father had heart attack at age 64 - Social History Occupation: Retired Lives: With Family Alcohol Use: None Substance Use Type: None Smoking Status (MU): Never Smoked Tobacco - Immunization History Most Recent Influenza Vaccination: 2011 Most Recent Tetanus Shot: UNSURE Most Recent Pneumonia Vaccination: HAD Review of Systems All Other Systems Reviewed And Are Negative: Yes Constitutional: Positive: Negative. Negative: Fever Skin: Positive: Negative. Negative: Rash Respiratory: Positive: Negative Cardiovascular: Positive: Negative Musculoskeletal: Positive: Other: - low back pain Psychological: Positive: Negative Is Patient Immunocompromised?: No Physical Exam Triage Information Reviewed: Yes Appearance: Well-Appearing, No Pain Distress, Well-Nourished Vital Signs: Initial Vital Signs Temp 98.2 F 10/24/19 07:42 Pulse 60 10/24/19 07:42 Resp 16 10/24/19 07:42 BP 125/66 10/24/19 07:42 Pulse Ox 99 10/24/19 07:42 Vital Signs Reviewed: Yes Respiratory: Positive: Lungs clear Cardiovascular Exam: Normal Abdomen Description: Negative: CVA Tenderness (R), CVA Tenderness (L) Musculoskeletal: Positive: Strength Intact, ROM Limited @ - pain with full flexion Neurological Exam: Normal Neurological: Positive: Alert Psychological Exam: Normal Skin Exam: Normal Skin: Negative: Rashes Back Pain Course/Dx - Differential Dx/Diagnosis Differential Diagnosis/HQI/PQRI: Cauda Equina Syndrome, Herniated Disc, Renal Colic, Strain Provider Diagnosis: Lumbago Discharge ED - Sign-Out/Discharge Documenting (check all that apply): Patient Departure All imaging exams completed and their final reports reviewed: No Studies - Discharge Plan Condition: Good Disposition: HOME Prescriptions: Methocarbamol TAB* [Robaxin 500 MG TAB*] 750 mg PO TID PRN #9 tab PRN Reason: Spasms - Back Patient Education Materials: Low Back Strain (ED) Referrals: Kimmy Ham MD [Primary Care Provider] - 2 Days (if not improving) Additional Instructions: use heating pad ibuprofen 600mg every 6 hours Muscle relaxer as prescribed - it may make you tired Do gentle stretching exercises - Billing Disposition and Condition Condition: GOOD Disposition: Home
== END 2019-10-24 08:48 | disposition home or self-care (01) ==
LOC: UCEAST 07:31
DX: M54.5 Low back pain (principal); E11.9 Type 2 diabetes mellitus without complications; I10 Essential (primary) hypertension; E78.5 Hyperlipidemia, unspecified; Z88.8 Allergy status to other drugs, medicaments and biological substances; Z88.5 Allergy status to narcotic agent; Z79.84 Long term (current) use of oral hypoglycemic drugs; Z79.899 Other long term (current) drug therapy
CPT/HCPCS: 99212; G0463